=== PATIENT | female | born 1950 | race Caucasian/White ===

== ENCOUNTER 2018-09-17 00:47 | Inpatient (IN) | payer OTHER ==
[2018-09-17 00:58] VITALS: BMI 27.4
--- NOTE | 2018-09-17 02:13 | PDOC ---
History of Present Illness - General Chief Complaint: Injury Stated Complaint: FALL Time Seen by Provider: 09/17/18 01:25 History Source: Patient Exam Limitations: No Limitations - History of Present Illness Initial Comments: 09/17/18 02:12 67YOF with multiple system atrophy, REM sleep disorder who p/w unwitnessed fall from bed. Patient states she was sleeping, fell to the floor, hit her face and forehead and does not know whether or not she lost consciousness. She currently has neck pain and feels that she cannot range the neck. Feels nauseated and hot flashes, but otherwise no additional new symptoms (no CP, SOB, hematuria, diarrhea, etc). The patient cannot remember the exact moment she hit the ground. She just remembers awakening on the floor in pain. States this has never happened to her before and is not typical of her REM sleep disorder. Past History - Past Medical History Allergies/Adverse Reactions: Allergies Allergy/AdvReac Type Severity Reaction Status Date / Time No Allergy Information Allergy Verified 09/17/18 02:30 Available Home Medications: Ambulatory Orders Aspirin [ASA -] 81 mg PO DAILY 09/17/18 Calcium Carbonate [Oysco-500] 500 mg PO DAILY 09/17/18 Cholecalciferol (Vitamin D3) [Vitamin D3] 1,000 unit PO DAILY 09/17/18 Docusate Sodium 200 mg PO BID 09/17/18 Levocetirizine Dihydrochloride 2.5 mg PO HS 09/17/18 Meclizine HCl 6.25 mg PO BID PRN 09/17/18 Melatonin 3 mg PO HS 09/17/18 Multivitamin with Iron [Daily Refugio with Iron] 1 each PO DAILY 09/17/18 Polyethylene Glycol 3350 [Purelax] 17 gm PO DAILY 09/17/18 Propylene Glycol/Peg 400 [Systane 0.3-0.4% Eye Drops] 5 ml OP QID 09/17/18 Sennosides [Senna] 8.6 mg PO TIDCM 09/17/18 - Suicide/Smoking/Psychosocial Hx Smoking History: Never smoked Have you smoked in the past 12 months: No Information on smoking cessation initiated: No Hx Alcohol Use: No Drug/Substance Use Hx: No Review of Systems - Review of Systems Able to Perform ROS?: Yes Comments:: 09/17/18 02:26 GEN: hot flash, no fever, chills, malaise, generalized weakness, or weight change HEENT: no ear pain, sore throat, vision change, or eye pain CV: no chest pain, palpitations, lightheadedness, syncope, or edema RESP: no cough, wheezing, or SOB GI: nausea, no abdominal pain, vomiting, diarrhea, constipation, or white/black/ bloody stool : no dysuria, hematuria, incontinence, retention, bleeding, or discharge MSK: neck pain, muscle weakness/pain, or joint swelling/pain NEURO: no headache, seizure, vertigo, numbness, tingling, or focal weakness PSYCH: no substance use, no behavior change SKIN: no jaundice, no rash ROS otherwise negative except as noted in HPI *Physical Exam - Vital Signs Last Vital Signs Temp Pulse Resp BP Pulse Ox 98.1 F 88 18 158/87 97 09/17/18 00:56 09/17/18 00:56 09/17/18 00:56 09/17/18 00:56 09/17/18 00:56 - Physical Exam Comments: 09/17/18 02:28 GENERAL: uncomfortable appearing, A/Ox4, no distress, answers questions appropriately HEENT: PERRLA, EOMI, moist mucous membranes NECK/BACK: no midline ttp, no spinal stepoff or deformity, no hematoma, full ROM , neck supple CARDIOVASCULAR: regular rate/rhythm, normal S1S2, no MGR, strong peripheral pulses, capillary refill <2 seconds, extremities wwp, no edema LUNGS/RESPIRATORY: no respiratory distress, CTAB GI/ABDOMEN: symmetric [id number], normoactive BS, soft, no ttp, no midline pulsatile masses : no CVA tenderness EXTREMITIES: no muscle atrophy, no acute deformity SKIN: warm and dry, no pallor, no jaundice, no rash, no bruising, no skin breakdown, no cuts, no lesions NEUROLOGICAL: GCS 15, CN II-XII grossly intact, 5/5 strength proximally and distally, no facial droop Moderate Sedation - Procedure Monitoring Vital Signs: Procedure Monitoring Vital Signs Temperature 98.1 F 09/17/18 00:56 Pulse Rate 88 09/17/18 00:56 Respiratory Rate 18 09/17/18 00:56 Blood Pressure 158/87 09/17/18 00:56 O2 Sat by Pulse Oximetry (%) 97 09/17/18 00:56 ED Treatment Course - LABORATORY CBC & Chemistry Diagram: 09/17/18 05:29 09/17/18 05:29 - RADIOLOGY Radiology Studies Ordered: Category Date Time Status CERVICAL SPINE CT W/O CONTR [CT] Stat CT Scan 09/17/18 02:[address] WITHOUT CONTRAST [CT] Stat CT Scan 09/17/18 02:11 Ordered FOOT-LEFT [RAD] Stat Radiology 09/17/18 02:11 Ordered TOE(S) LEFT [RAD] Stat Radiology 09/17/18 02:11 Ordered Medical Decision Making - Medical Decision Making 67YOF with multiple system atrophy and REM sleep d/o p/w fall from bed with subsequent neck pain, right face contusion. Initial Vital Signs Temp Pulse Resp BP Pulse Ox 98.1 F 88 18 158/87 97 09/17/18 00:56 09/17/18 00:56 09/17/18 00:56 09/17/18 00:56 09/17/18 00:56 Exam: As noted in Physical Exam section. DDX IBNLT: C-spine injury, contusions, concussion, ICH, skull fracture, facial bone fracture, possible contributing factors UTI, ACS, etc. W/U ordered: Head, facial bones, and C-spine CT, labs as noted below. TX ordered: Tylenol EKG: Reviewed; results as noted in ECG Review section. Head CT: Nothing acute. Facial Bones CT: Nothing acute. C-spine CT: Nothing acute. 09/17/18 05:54 Patient refusing straight cath. She is incontinent at baseline. She prefers to have bedpan placed and she will try to urinate. Troponin is 0.13 and I have thus ordered 324 of ASA. Laboratory Tests 09/17/18 09/17/18 09/17/18 05:29 05:29 05:50 WBC 9.3 RBC 3.84 Hgb 12.3 Hct 35.0 MCV 91.1 MCH 32.1 MCHC 35.2 RDW 13.3 Plt Count 199 MPV 8.2 Absolute Neuts (auto) 6.6 Neutrophils % 70.8 Lymphocytes % 17.3 Monocytes % 9.8 Eosinophils % 1.5 Basophils % 0.6 Nucleated RBC % 0 Sodium 142 Potassium 3.6 Chloride 108 H Carbon Dioxide 28 Anion Gap 6 L BUN 26 H Creatinine 0.7 Creat Clearance w eGFR > 60 Random Glucose 92 Calcium 8.2 L Total Bilirubin 0.4 AST 32 ALT 26 Alkaline Phosphatase 68 Troponin I 0.13 H Total Protein 6.0 L Albumin 3.1 L Urine Color Ltyellow Urine Appearance Clear Urine pH 5.0 Ur Specific [place] 1.014 Urine Protein Negative Urine Glucose (UA) Negative Urine Ketones Negative Urine Blood Negative Urine Nitrite Negative Urine Bilirubin Negative Urine Urobilinogen Negative Ur Leukocyte Esterase Negative Reassessment: Patient states comfortable, exam unchanged. 09/17/18 07:19 I have discussed the case with the attending. The patient has questionable syncopal episode as she does not remember falling or hitting the ground. It is difficult to attribute this fall from bed to her REM sleep disorder as it has never manifested in falls from bed. She also has troponin above reference range and this must be further investigated. The Pt is unsafe for discharge at this time. I have spoken with Dr. Ndiaye and will place Decision to Admit order for Inpatient Tele. We will repeat troponin and EKG at 9 am. *DC/Admit/Observation/Transfer Diagnosis at time of Disposition: Neck pain, Elevated troponin Fall from bed Qualifiers: Encounter type: initial encounter Qualified Code(s): W06.XXXA - Fall from bed, initial encounter - Discharge Dispostion Condition at time of disposition: Guarded Decision to Admit order: Yes - Referrals - Patient Instructions - Post Discharge Activity
[2018-09-17] MEDS ORDERED: ACETAMINOPHEN 500 MG TABLET (FP) PO ONE (02:30)
--- NOTE | 2018-09-17 02:31 | PDOC ---
Attending Attestation - Resident Resident Name: Karla Mcgraw - ED Attending Attestation I have performed the following: I have examined & evaluated the patient, The case was reviewed & discussed with the resident, I agree w/resident's findings & plan, Exceptions are as noted - HPI HPI: 09/17/18 07:48 67F pmh of REM sleep d/o, multiple system atrophy with unwitnessed fall. She states she woke from sleep on the floor by her bead with facial px. She is unable to specify the surrounding events. But states that this is not a typical presentation of her sleep disorder. No other complaints. - Physicial Exam PE: 09/17/18 07:50 Agree with exam as documented by resident - Medical Decision Making 09/17/18 07:51 Patient here with questionable syncope, complaint is not consistent with her chronic issues Labs show new trop of 0.13 trend trops, ekg admit
[2018-09-17] MEDS ORDERED: ACETAMINOPHEN 325 MG TABLET (FP) ONE (02:51)
[2018-09-17 05:40] LABS: BASO % 0.6 % (0-2.0); EOS % 1.5 % (0-4.5); HEMOGLOBIN 12.3 GM/dL (10.7-15.3); LYMPH % 17.3 % (8-40); MCH 32.1 pg (25.7-33.7); MCHC 35.2 g/dl (32.0-36.0); MEAN CELL VOLUME 91.1 fl (80-96); MEAN PLT VOLUME 8.2 fl (7.5-11.1); MONO % 9.8 % (3.8-10.2); NEUT % 70.8 % (42.8-82.8); PLATELET COUNT 199 K/MM3 (134-434); RBC 3.84 M/mm3 (3.60-5.2); RDW 13.3 % (11.6-15.6); WHITE BLOOD COUNT 9.3 K/mm3 (4.0-10.0)
[2018-09-17] MEDS ORDERED: MAG HYDROX/AL HYDROX/SIMETH 30 ML UNIT-DOSE CUP PO ONE (06:05)
[2018-09-17 06:11] LABS: ALBUMIN 3.1 g/dl (3.4-5.0); ALK PHOS 68 U/L (45-117); ANION GAP 6 MMOL/L (8-16); BILIRUBIN,TOTAL 0.4 mg/dL (0.2-1); BLOOD UREA NITROGEN 26 mg/dL (7-18); CALCIUM 8.2 mg/dL (8.5-10.1); CHLORIDE 108 mmol/L (98-107); CO2 28 mmol/L (21-32); CREATININE 0.7 mg/dL (0.55-1.3); GLUCOSE,RANDOM 92 mg/dL (74-106); POTASSIUM 3.6 mmol/L (3.5-5.1); SGOT/AST 32 U/L (15-37); SGPT/ALT 26 U/L (13-61); SODIUM 142 mmol/L (136-145)
[2018-09-17] MEDS ORDERED: ASPIRIN 325 MG ENTERIC COATED TABLET (FP) PO ONE (06:23)
[2018-09-17 06:31] LABS: URINE APPEARANCE CLEAR; URINE BILIRUBIN NEGATIVE (<2.0 mg/dL); URINE COLOR LTYELLOW; URINE GLUCOSE (UA) NEGATIVE (NEGATIVE); URINE KETONE NEGATIVE (NEGATIVE); URINE LEUK ESTERASE NEGATIVE (NEGATIVE); URINE NITRITE NEGATIVE (NEGATIVE); URINE PROTEIN NEGATIVE (NEGATIVE); URINE UROBILINOGEN NEGATIVE mg/dL (0.2-1.0)
[2018-09-17] MEDS ORDERED: MECLIZINE HCL 12.5 MG TABLET PO PRN (07:33)
[2018-09-17] MEDS ORDERED: ASPIRIN 81 MG CHEWABLE TABLETS ONE (10:25)
[2018-09-17] MEDS ORDERED: DOCUSATE SODIUM 100 MG CAPSULE (FP) PO ONE (10:25)
[2018-09-17] MEDS: DOCUSATE SODIUM 100 MG CAPSULE (FP) PO SCH ×2 (10:26→21:16)
[2018-09-17] MEDS: ASPIRIN 81 MG CHEWABLE TABLETS PO SCH (10:26)
[2018-09-17] MEDS: CHOLECALCIFEROL (VITAMIN D3) 1,000 UNIT TABLET (FP) PO SCH (11:17)
[2018-09-17] MEDS: CALCIUM (OYSTER SHELL) 500 MG TABLET (FP) PO SCH (11:17)
--- NOTE | 2018-09-17 11:36 | CON.CARD ---
Cardiology Consult (text) - Consultation Consultation Note: cc: fall hpi: 67 f hx parkinsons here s/p fall. Pt fell out of bed while she was sleeping last night. Had been feeling well lately. No cp sob palps dizzy loc pnd orthopnea le edema. No hx hrt dz. Feels well now, asking to go home. pmh: per hpi psh: nc social: no tob fam: no premature cad or scd ros: per hpi; no nvd fever gib hematuria dysuria vision changes muscle pain meds: Home Medications Medication Instructions Recorded Aspirin [ASA -] 81 mg PO DAILY 09/17/18 Calcium Carbonate [Oysco-500] 500 mg PO DAILY 09/17/18 Cholecalciferol (Vitamin D3) 1,000 unit PO DAILY 09/17/18 [Vitamin D3] Docusate Sodium 200 mg PO BID 09/17/18 Levocetirizine Dihydrochloride 2.5 mg PO HS 09/17/18 Meclizine HCl 6.25 mg PO BID PRN 09/17/18 Melatonin 3 mg PO HS 09/17/18 Multivitamin with Iron [Daily Refugio 1 each PO DAILY 09/17/18 with Iron] Polyethylene Glycol 3350 [Purelax] 17 gm PO DAILY 09/17/18 Propylene Glycol/Peg 400 [Systane 5 ml OP QID 09/17/18 0.3-0.4% Eye Drops] Sennosides [Senna] 8.6 mg PO TIDCM 09/17/18 pe: Vital Signs Period Temp Pulse Resp BP Sys/Nicholas Pulse Ox Last 24 Hr 98.1 F-98.5 F 70-88 16-19 119-158/59-87 97-99 nad no jvd rrr s1s2 no mrg cta bl nl eff aaox3 no le e/c/c abd nt nd pos bs no jaundice diaphoresis pos dp pt no carotid bruits Laboratory Last Values WBC 9.3 K/mm3 (4.0-10.0) 09/17/18 05:29 RBC 3.84 M/mm3 (3.60-5.2) 09/17/18 05:29 Hgb 12.3 GM/dL (10.7-15.3) 09/17/18 05:29 Hct 35.0 % (32.4-45.2) 09/17/18 05:29 MCV 91.1 fl (80-96) 09/17/18 05:29 MCH 32.1 pg (25.7-33.7) 09/17/18 05:29 MCHC 35.2 g/dl (32.0-36.0) 09/17/18 05:29 RDW 13.3 % (11.6-15.6) 09/17/18 05:29 Plt Count 199 K/MM3 (134-434) 09/17/18 05:29 MPV 8.2 fl (7.5-11.1) 09/17/18 05:29 Absolute Neuts (auto) 6.6 K/mm3 (1.5-8.0) 09/17/18 05:29 Neutrophils % 70.8 % (42.8-82.8) 09/17/18 05:29 Lymphocytes % 17.3 % (8-40) 09/17/18 05:29 Monocytes % 9.8 % (3.8-10.2) 09/17/18 05:29 Eosinophils % 1.5 % (0-4.5) 09/17/18 05:29 Basophils % 0.6 % (0-2.0) 09/17/18 05:29 Nucleated RBC % 0 % (0-0) 09/17/18 05:29 Sodium 142 mmol/L (136-145) 09/17/18 05:29 Potassium 3.6 mmol/L (3.5-5.1) 09/17/18 05:29 Chloride 108 mmol/L (98-107) H 09/17/18 05:29 Carbon Dioxide 28 mmol/L (21-32) 09/17/18 05:29 Anion Gap 6 MMOL/L (8-16) L 09/17/18 05:29 BUN 26 mg/dL (7-18) H 09/17/18 05:29 Creatinine 0.7 mg/dL (0.55-1.3) 09/17/18 05:29 Creat Clearance w eGFR > 60 (>60) 09/17/18 05:29 Random Glucose 92 mg/dL (74-106) 09/17/18 05:29 Calcium 8.2 mg/dL (8.5-10.1) L 09/17/18 05:29 Total Bilirubin 0.4 mg/dL (0.2-1) 09/17/18 05:29 AST 32 U/L (15-37) 09/17/18 05:29 ALT 26 U/L (13-61) 09/17/18 05:29 Alkaline Phosphatase 68 U/L (45-117) 09/17/18 05:29 Troponin I 0.11 ng/ml (0.00-0.05) H 09/17/18 07:56 Total Protein 6.0 g/dl (6.4-8.2) L 09/17/18 05:29 Albumin 3.1 g/dl (3.4-5.0) L 09/17/18 05:29 Urine Color Ltyellow 09/17/18 05:50 Urine Appearance Clear 09/17/18 05:50 Urine pH 5.0 (5.0-8.0) 09/17/18 05:50 Ur Specific [place] 1.014 (1.010-1.035) 09/17/18 05:50 Urine Protein Negative (NEGATIVE) 09/17/18 05:50 Urine Glucose (UA) Negative (NEGATIVE) 09/17/18 05:50 Urine Ketones Negative (NEGATIVE) 09/17/18 05:50 Urine Blood Negative (NEGATIVE) 09/17/18 05:50 Urine Nitrite Negative (NEGATIVE) 09/17/18 05:50 Urine Bilirubin Negative (<2.0 mg/dL) 09/17/18 05:50 Urine Urobilinogen Negative mg/dL (0.2-1.0) 09/17/18 05:50 Ur Leukocyte Esterase Negative (NEGATIVE) 09/17/18 05:50 ecg: sr, nl qtc, IRBBB a/p: 67 f hx parkinsons here s/p fall. fall: -pt fell out of bed while sleeping, no indication of cardiac involvement elevated troponin: -borderline trop level with flat trend. no clinical suspicion for acute cardiac issues. no signs of acs. No further cardiac testing needed at this time. cardiac robledo stable for dc.
--- NOTE | 2018-09-17 11:51 | EKG ---
Test Reason : Blood Pressure : / mmHG Vent. Rate : 067 BPM Atrial Rate : 067 BPM P-R Int : 186 ms QRS Dur : 134 ms QT Int : 446 ms P-R-T Axes : 063 046 032 degrees QTc Int : 471 ms NORMAL SINUS RHYTHM RIGHT BUNDLE BRANCH BLOCK ABNORMAL ECG WHEN COMPARED WITH ECG OF 17-SEP-2018 05:40, NO SIGNIFICANT CHANGE WAS FOUND Confirmed by NASREEN ALVAREZ, PERLA ([id number]) on 09/17/2018 11:51:18 AM Referred By: Confirmed By:PERLA DOWNEY MD
--- NOTE | 2018-09-17 11:51 | EKG ---
Test Reason : Blood Pressure : / mmHG Vent. Rate : 059 BPM Atrial Rate : 059 BPM P-R Int : 172 ms QRS Dur : 132 ms QT Int : 466 ms P-R-T Axes : 064 010 036 degrees QTc Int : 461 ms SINUS BRADYCARDIA RIGHT BUNDLE BRANCH BLOCK ABNORMAL ECG NO PREVIOUS ECGS AVAILABLE Confirmed by NASREEN ALVAREZ, PERLA ([id number]) on 09/17/2018 11:51:25 AM Referred By: Confirmed By:PERLA DOWNEY MD
--- NOTE | 2018-09-17 12:09 | HP ---
Admitting History and Physical - Admission History of Present Illness: hpi: 67 f hx parkinsons here s/p fall. Pt fell out of bed while she was sleeping last night. Had been feeling well lately. No cp sob palps dizzy loc pnd orthopnea le edema. No hx hrt dz. She was found tohave elevated troponin in ER and cardiology consult was requested, patient cleared for discharge to return to [address] [place] [address] Limitations to Obtaining History: Poor Historian - Past Medical History [employer]: Yes: Parkinson's - Smoking History Smoking history: Never smoked Have you smoked in the past 12 months: No - Alcohol/Substance Use Hx Alcohol Use: No - Social History Usual Living Arrangement: Yes: Assisted Living ADL: Support Services History of Recent Travel: No Home Medications - Allergies Allergies/Adverse Reactions: Allergies Allergy/AdvReac Type Severity Reaction Status Date / Time loratadine [From Claritin] Allergy Verified 09/18/18 04:57 - Home Medications Home Medications: Ambulatory Orders Aspirin [ASA -] 81 mg PO DAILY 09/17/18 Calcium Carbonate [Oysco-500] 500 mg PO DAILY 09/17/18 Cholecalciferol (Vitamin D3) [Vitamin D3] 1,000 unit PO DAILY 09/17/18 Docusate Sodium 200 mg PO BID 09/17/18 Levocetirizine Dihydrochloride 2.5 mg PO HS 09/17/18 Meclizine HCl 6.25 mg PO BID PRN 09/17/18 Melatonin 3 mg PO HS 09/17/18 Multivitamin with Iron [Daily Refugio with Iron] 1 each PO DAILY 09/17/18 Polyethylene Glycol 3350 [Purelax] 17 gm PO DAILY 09/17/18 Propylene Glycol/Peg 400 [Systane 0.3-0.4% Eye Drops] 5 ml OP QID 09/17/18 Sennosides [Senna] 8.6 mg PO TIDCM 09/17/18 Review of Systems - Review of Systems Constitutional: reports: No Symptoms Eyes: reports: No Symptoms HENT: reports: No Symptoms Neck: reports: No Symptoms Cardiovascular: reports: No Symptoms Respiratory: reports: No Symptoms Gastrointestinal: reports: No Symptoms Genitourinary: reports: No Symptoms Breasts: reports: No Symptoms Reported Musculoskeletal: reports: Joint Pain, Muscle Weakness Integumentary: reports: No Symptoms Neurological: reports: Pre-Existing Deficit, Tremors, Unsteady Gait Endocrine: reports: No Symptoms Hematology/Lymphatic: reports: No Symptoms Psychiatric: reports: Depression Physical Examination Vital Signs: Vital Signs Temperature 98.4 F 09/17/18 07:35 Pulse Rate 70 09/17/18 11:18 Respiratory Rate 18 09/17/18 11:18 Blood Pressure 136/65 09/17/18 11:18 O2 Sat by Pulse Oximetry (%) 98 09/17/18 11:18 Constitutional: Yes: Well Nourished, No Distress, Calm Eyes: Yes: Conjunctiva Clear, EOM Intact HENT: Yes: Normocephalic Neck: Yes: Supple, Trachea Midline Cardiovascular: Yes: Regular Rate and Rhythm Respiratory: Yes: CTA Bilaterally Gastrointestinal: Yes: Normal Bowel Sounds, Soft ...Rectal Exam: Yes: Deferred Renal/: Yes: WNL Breast(s): Yes: WNL Musculoskeletal: Yes: Joint Stiffness, Muscle Weakness Extremities: No: Deformity Edema: No Peripheral Pulses WNL: Yes Integumentary: Yes: Bruising (facial) Wound/Incision: Yes: Clean/Dry Neurological: Yes: Alert, Oriented Psychiatric: Yes: Alert, Oriented Labs: CBC, BMP 09/17/18 05:29 09/17/18 05:29 Problem List - Problems (1) Fall from bed Code(s): W06.XXXA - FALL FROM BED, INITIAL ENCOUNTER Qualifiers: Encounter type: initial encounter Qualified Code(s): W06.XXXA - Fall from bed, initial encounter (2) Neck pain Code(s): M54.2 - CERVICALGIA (3) Elevated troponin Assessment/Plan: no chest pain / shortness of breath . diaphoresis do Sx of ACS or cardiac event TNI X3 trending down no EKG changes Cardio request for discharge Code(s): R74.8 - ABNORMAL LEVELS OF OTHER SERUM ENZYMES
--- NOTE | 2018-09-17 12:23 | DS ---
Physical Examination Vital Signs: Vital Signs Temperature 98.4 F 09/17/18 07:35 Pulse Rate 70 09/17/18 11:18 Respiratory Rate 18 09/17/18 11:18 Blood Pressure 136/65 09/17/18 11:18 O2 Sat by Pulse Oximetry (%) 98 09/17/18 11:18 Findings/Remarks: hpi: 67 f hx parkinsons here s/p fall. Pt fell out of bed while she was sleeping last night. Had been feeling well lately. No cp sob palps dizzy loc pnd orthopnea le edema. No hx hrt dz. She was found tohave elevated troponin in ER and cardiology consult was requested, patient cleared for discharge to return to [address] [place] [address]. no Sx of ACS / or cardiac event appreciate cardiology evaluation Limitations to Obtaining History: Poor Historian Constitutional: Yes: Well Nourished, No Distress Eyes: Yes: Conjunctiva Clear, EOM Intact HENT: Yes: Normocephalic Neck: Yes: Supple, Trachea Midline Cardiovascular: Yes: Regular Rate and Rhythm Respiratory: Yes: CTA Bilaterally Gastrointestinal: Yes: Normal Bowel Sounds, Soft ...Rectal Exam: Yes: WNL Renal/: Yes: WNL Breast(s): Yes: WNL Musculoskeletal: Yes: Joint Stiffness, Muscle Weakness Extremities: Yes: WNL, Deformity Edema: No Peripheral Pulses WNL: Yes Integumentary: Yes: Bruising Wound/Incision: Yes: Clean/Dry Neurological: Yes: Alert, Oriented Psychiatric: Yes: Alert, Oriented Labs: CBC, BMP 09/17/18 05:29 09/17/18 05:29 Discharge Summary Reason For Visit: FALL FROM BED,ELEVATED TROPONIN LEVEL,NECK PAIN Current Active Problems Elevated troponin (Acute) Fall from bed (Acute) Neck pain (Acute) Condition: Fair - Instructions Disposition: VNS/HOME HEALTH CARE - Home Medications Comprehensive Discharge Medication List: Ambulatory Orders Aspirin [ASA -] 81 mg PO DAILY 09/17/18 Calcium Carbonate [Oysco-500] 500 mg PO DAILY 09/17/18 Cholecalciferol (Vitamin D3) [Vitamin D3] 1,000 unit PO DAILY 09/17/18 Docusate Sodium 200 mg PO BID 09/17/18 Levocetirizine Dihydrochloride 2.5 mg PO HS 09/17/18 Meclizine HCl 6.25 mg PO BID PRN 09/17/18 Melatonin 3 mg PO HS 09/17/18 Multivitamin with Iron [Daily Refugio with Iron] 1 each PO DAILY 09/17/18 Polyethylene Glycol 3350 [Purelax] 17 gm PO DAILY 09/17/18 Propylene Glycol/Peg 400 [Systane 0.3-0.4% Eye Drops] 5 ml OP QID 09/17/18 Sennosides [Senna] 8.6 mg PO TIDCM 09/17/18
--- NOTE | 2018-09-17 15:41 | ECHO ---
Version: 1 Name: FREDDY MOREL Exam: Adult Echocardiogram Study Date: 09/17/2018, 2:54 PM Age: 67 Years MMode/2D Measurements & Calculations IVSd: 0.81 cm LVIDs: 2.6 cm LVIDd: 3.8 cm LVPWd: 0.93 cm LVOT diam: 2.09 cm Ao root diam: 2.8 cm LA dimension: 3.2 cm Doppler Measurements & Calculations MV E max devon: 50.8 cm/sec Med E/e': 7.6 MV A max devon: 60.7 cm/sec Med Peak E' Devon: 6.7 cm/sec MV E/A: 0.84 Lat E/e': 5.3 Lat Peak E' Devon: 9.7 cm/sec Ao max P.9 mmHg Ao V2 max: 165.1 cm/sec Left Ventricle The left ventricular ejection fraction is normal. Ejection Fraction = 55-60%. Right Ventricle The right ventricle is grossly normal size. The right ventricular systolic function is grossly tommie l. Atria Normal left and right atrial size and function. Mitral Valve The mitral valve is normal in structure and function. There is no mitral valve stenosis. There is mi ld mitral regurgitation. Tricuspid Valve The tricuspid valve is normal in structure and function. There is mild tricuspid regurgitation. Aortic Valve The aortic valve opens well. No hemodynamically significant valvular aortic stenosis. No aortic regu rgitation is present. Pulmonic Valve The pulmonic valve is not well seen, but is grossly normal. There is no pulmonic valvular stenosis. Great Vessels The aortic root is normal size. Pericardium/Pleura There is no pericardial effusion. Summary Statements The left ventricular ejection fraction is normal. Ejection Fraction = 55-60%. There is mild mitral regurgitation. There is mild tricuspid regurgitation. There is no pericardial effusion. MD Gross *Masoud 09/17/2018, 3:40 PM Ordering Physician: GAUDENCIO MENDOZA Performed By: Paloma Treviño
[2018-09-17] MEDS ORDERED: ACETAMINOPHEN 325 MG TABLET (FP) PO PRN (22:24)
[2018-09-17] MEDS ORDERED: MELATONIN 1 MG TABLET PO SCH (22:30)
[2018-09-18 07:11] LABS: BASO % 0.5 % (0-2.0); EOS % 3.1 % (0-4.5); HEMATOCRIT 34.9 % (32.4-45.2); HEMOGLOBIN 12.3 GM/dL (10.7-15.3); LYMPH % 24.7 % (8-40); MCHC 35.3 g/dl (32.0-36.0); MEAN CELL VOLUME 90.6 fl (80-96); MEAN PLT VOLUME 8.4 fl (7.5-11.1); MONO % 9.3 % (3.8-10.2); NEUT % 62.4 % (42.8-82.8); PLATELET COUNT 193 K/MM3 (134-434); RBC 3.85 M/mm3 (3.60-5.2); RDW 13.1 % (11.6-15.6); WHITE BLOOD COUNT 5.7 K/mm3 (4.0-10.0)
[2018-09-18 07:53] LABS: ANION GAP 5 MMOL/L (8-16); BLOOD UREA NITROGEN 13 mg/dL (7-18); CALCIUM 8.3 mg/dL (8.5-10.1); CHLORIDE 106 mmol/L (98-107); CO2 29 mmol/L (21-32); CREATININE 0.5 mg/dL (0.55-1.3); GLUCOSE,RANDOM 92 mg/dL (74-106); MAGNESIUM 2.2 mg/dL (1.8-2.4); POTASSIUM 3.6 mmol/L (3.5-5.1); SODIUM 140 mmol/L (136-145)
--- NOTE | 2018-09-18 08:52 | PN ---
Progress Note, Physician Chief Complaint: fall History of Present Illness: denies cp, palpitations, PND, leg swelling - Current Medication List Current Medications: Active Medications Acetaminophen (Tylenol -) 650 mg PO Q6H PRN PRN Reason: FEVER Last Admin: 09/17/18 23:08 Dose: 650 mg Aspirin (Asa -) 81 mg PO DAILY [facility] Last Admin: 09/17/18 10:26 Dose: 81 mg Calcium Carbonate (Os-Daniel 500mg -) 500 mg PO DAILY [facility] Last Admin: 09/17/18 11:17 Dose: 500 mg Cholecalciferol (Vitamin D3 -) 1,000 unit PO DAILY [facility] Last Admin: 09/17/18 11:17 Dose: 1,000 unit Docusate Sodium (Colace -) 200 mg PO BID [facility] Last Admin: 09/17/18 21:16 Dose: 200 mg Loratadine (Claritin -) 10 mg PO DAILY [facility] Meclizine HCl (Antivert -) 6.25 mg PO Q12H PRN PRN Reason: VERTIGO Melatonin (Melatonin) 3 mg PO HS [facility] Last Admin: 09/17/18 23:45 Dose: 3 mg - Objective Vital Signs: Vital Signs Temperature 98 F 09/18/18 06:00 Pulse Rate 71 09/18/18 06:00 Respiratory Rate 16 09/18/18 06:00 Blood Pressure 146/73 09/18/18 06:00 O2 Sat by Pulse Oximetry (%) 98 09/17/18 21:00 Constitutional: Yes: Well Nourished, No Distress, Calm Cardiovascular: Yes: Regular Rate and Rhythm, S1, S2. No: Gallop, Murmur Respiratory: Yes: Regular, CTA Bilaterally. No: Accessory Muscle Use, Rales, Wheezes Extremities: No: Cold Edema: No Neurological: Yes: Alert, Oriented, Tremors (fine tremor, rapid, R arm) Psychiatric: No: Agitated Labs: CBC, BMP 09/18/18 06:30 09/18/18 06:30 Assessment/Plan Echo 09/11: nl LVEF (55-60%). nl RV. nl LA. mild MR/TR tele: NSR, artifact a/p: 67 f hx parkinsons here s/p fall. fall: -pt fell out of bed while sleeping, no indication of cardiac involvement elevated troponin: -indeterminate trop level (0.1) with flat trend = non-diagnostic in absence of clinical picture c/w acute ischemia -no ischemic ecg changes -normal LV fxn on echo -no further CV workup indicated abnormal ecg: -tele frequently with alarms for tachycardia/SVT -strips reviewed--clearly artifactual (sec to pt tremor) with underyling R-R intervals apparent intermittently that are c/w NSR rate -no further w/u necessary OK FOR DC FROM CV P.O.V.
[2018-09-18] MEDS ORDERED: PT OWN MED DRAWER 7, Y5N ONE (09:35)
[2018-09-18] MEDS: DOCUSATE SODIUM 100 MG CAPSULE (FP) PO SCH (09:55)
[2018-09-18] MEDS: CHOLECALCIFEROL (VITAMIN D3) 1,000 UNIT TABLET (FP) PO SCH (09:55)
[2018-09-18] MEDS: CALCIUM (OYSTER SHELL) 500 MG TABLET (FP) PO SCH (09:55)
[2018-09-18] MEDS: ASPIRIN 81 MG CHEWABLE TABLETS PO SCH (09:55)
[2018-09-18] MEDS ORDERED: LORATADINE 10 MG TABLET PO SCH (10:00)
--- NOTE | 2018-09-18 12:47 | EKG ---
Test Reason : Blood Pressure : / mmHG Vent. Rate : 080 BPM Atrial Rate : 080 BPM P-R Int : 190 ms QRS Dur : 128 ms QT Int : 422 ms P-R-T Axes : 057 041 014 degrees QTc Int : 486 ms NORMAL SINUS RHYTHM RIGHT BUNDLE BRANCH BLOCK ABNORMAL ECG Confirmed by DAVID OLIVARES MD ([id number]) on 09/18/2018 12:47:10 PM Referred By: Coby HUANG Confirmed By:DAVID OLIVARES MD
--- NOTE | 2018-09-18 14:41 | PN ---
Progress Note (short form) - Note Progress Note: Patient seen and examined in her room telemetry reviewed no arrhythmias seen appreciate Cardio input and agree with A/P Vital Signs Period Temp Pulse Resp BP Sys/Nicholas Pulse Ox Last 24 Hr 97.8 F-98.4 F 71-95 16-69 112-159/57-84 98-99 neck -JVD heart reg S1/S2 lungs clear bilat abd soft non tender ext no edema CBC, BMP 09/18/18 06:30 09/18/18 06:30 Echo 09/11: nl LVEF (55-60%). nl RV. nl LA. mild MR/TR tele: NSR, artifact Microbiology 09/17/18 05:50 Urine - Urine Clean Catch Urine Culture - Final NO GROWTH OBTAINED Active Medications Acetaminophen (Tylenol -) 650 mg PO Q6H PRN PRN Reason: FEVER Last Admin: 09/17/18 23:08 Dose: 650 mg Aspirin (Asa -) 81 mg PO DAILY COUNTS INCLUDE 234 BEDS AT THE [facility] Last Admin: 09/18/18 09:55 Dose: 81 mg Calcium Carbonate (Os-Daniel 500mg -) 500 mg PO DAILY COUNTS INCLUDE 234 BEDS AT THE [facility] Last Admin: 09/18/18 09:55 Dose: 500 mg Cholecalciferol (Vitamin D3 -) 1,000 unit PO DAILY COUNTS INCLUDE 234 BEDS AT THE [facility] Last Admin: 09/18/18 09:55 Dose: 1,000 unit Docusate Sodium (Colace -) 200 mg PO BID COUNTS INCLUDE 234 BEDS AT THE [facility] Last Admin: 09/18/18 09:55 Dose: 200 mg Loratadine (Claritin -) 10 mg PO DAILY COUNTS INCLUDE 234 BEDS AT THE [facility] Last Admin: 09/18/18 09:51 Dose: Not Given Meclizine HCl (Antivert -) 6.25 mg PO Q12H PRN PRN Reason: VERTIGO Melatonin (Melatonin) 3 mg PO HS COUNTS INCLUDE 234 BEDS AT THE [facility] Last Admin: 09/17/18 23:45 Dose: 3 mg 67 f hx parkinsons here s/p fall. Discussed with staff at assisted living -- no associated events. Patient denies CP / SOB / diaphoresis or other cardiac symptoms prior to event or following event . She was transferred to ER for further evaluation. Appreciate Cardiology consult and follow up. She will be discharged today to return to [facility] -- no change in medical management. Problem List - Problems (1) Fall from bed Code(s): W06.XXXA - FALL FROM BED, INITIAL ENCOUNTER Qualifiers: Encounter type: initial encounter Qualified Code(s): W06.XXXA - Fall from bed, initial encounter (2) Parkinson disease Code(s): G20 - PARKINSON'S DISEASE (3) Neck pain Code(s): M54.2 - CERVICALGIA (4) Elevated troponin Assessment/Plan: no chest pain / shortness of breath . diaphoresis do Sx of ACS or cardiac event TNI X3 trending down no EKG changes Cardio cleared for discharge Code(s): R74.8 - ABNORMAL LEVELS OF OTHER SERUM ENZYMES
[2018-09-18 15:12] VITALS: BP 119/65; PULSE 86; TEMP 98.2
== END 2018-09-18 16:47 | disposition home health service (06) | DRG 948 ==
LOC: JER 00:47 → JERBED 06:35 → J4S 19:53
PROVIDERS: ADMIT Family Medicine; ATTEND Family Medicine
DX: R74.8 Abnormal levels of other serum enzymes (principal); M54.2 Cervicalgia; R00.0 Tachycardia, unspecified; G20 Parkinson's disease
CPT/HCPCS: 36415; 70450-TC; 70486-TC; 72125-TC; 73630-TC-LT; 73660-TC-LT-FY; 80048; 80053; 81003; 82550; 82553; 83735; 84484; 85025; 87086; 93005; 93010; 93306-TC; 99285-25

== ENCOUNTER 2020-10-28 11:47 | Observation (INO) | payer OTHER ==
[2020-10-28] MEDS ORDERED: NOREPINEPHRINE BITARTRATE 4 MG/4 ML ML IV ONE (12:09)
[2020-10-28] MEDS: SODIUM CHLORIDE 1,000 ML IV SCH (12:31)
[2020-10-28 12:45] LABS: BASO % 0.3 % (0-2.0); HEMATOCRIT 38.8 % (32.4-45.2); HEMOGLOBIN 13.3 GM/dL (10.7-15.3); LYMPH % 4.8 % (8-40); MCH 30.9 pg (25.7-33.7); MCHC 34.1 g/dl (32.0-36.0); MEAN CELL VOLUME 90.7 fl (80-96); MEAN PLT VOLUME 8.5 fl (7.5-11.1); MONO % 7.1 % (3.8-10.2); NEUT % 87.8 % (42.8-82.8); PLATELET COUNT 218 K/MM3 (134-434); RBC 4.28 M/mm3 (3.60-5.2); RDW 13.4 % (11.6-15.6); WHITE BLOOD COUNT 8.9 K/mm3 (4.0-10.0)
[2020-10-28 12:50] LABS: INR 0.97 (0.83-1.09); PROTHROMBIN TIME (PATIENT) 11.9 SEC (9.7-13.0)
[2020-10-28 12:53] LABS: ACTIVATED PTT 27.5 SECONDS (25.2-36.5)
[2020-10-28 13:04] LABS: CHOLESTEROL 246 mg/dL (50-200)
[2020-10-28 13:05] LABS: LDL CHOLESTEROL (ONLY SJRH) 147 mg/dL (5-100); TRIGLYCERIDES 137 mg/dL (0-150)
[2020-10-28 13:06] LABS: HDL CHOLESTEROL 68 mg/dL (40-60)
[2020-10-28 13:10] LABS: ALBUMIN 3.3 g/dl (3.4-5.0); ALK PHOS 82 U/L (45-117); ANION GAP 7 MMOL/L (8-16); BILIRUBIN,TOTAL 0.6 mg/dL (0.2-1); BLOOD UREA NITROGEN 18.8 mg/dL (7-18); CALCIUM 8.9 mg/dL (8.5-10.1); CHLORIDE 104 mmol/L (98-107); CO2 26 mmol/L (21-32); CREATININE 0.9 mg/dL (0.55-1.3); GLUCOSE,RANDOM 125 mg/dL (74-106); POTASSIUM 3.8 mmol/L (3.5-5.1); SGOT/AST 18 U/L (15-37); SGPT/ALT 8 U/L (13-61); SODIUM 138 mmol/L (136-145); TOT PROT 6.8 g/dl (6.4-8.2)
[2020-10-28 13:38] LABS: EPI CELLS 26 /uL (0-25.1); HYALINE CASTS 5 /uL (0-3.1); URINE APPEARANCE CLEAR; URINE BACTERIA 616 /uL (0-1359); URINE BILIRUBIN NEGATIVE (NEGATIVE); URINE COLOR YELLOW; URINE GLUCOSE (UA) NEGATIVE (NEGATIVE); URINE KETONE TRACE (NEGATIVE); URINE LEUK ESTERASE NEGATIVE (NEGATIVE); URINE NITRITE NEGATIVE (NEGATIVE); URINE PROTEIN 1+ (NEGATIVE); URINE RBC 10 /uL (0-23.9); URINE WBC 26 /uL (0-25.8)
[2020-10-28] MEDS ORDERED: DOCUSATE SODIUM 100 MG CAPSULE (FP) PO PRN (15:12)
[2020-10-28] MEDS ORDERED: PANTOPRAZOLE 20 MG TABLET PO ONE ×2 (16:36→17:07)
[2020-10-28] MEDS: PANTOPRAZOLE 40 MG TABLET PO SCH (17:00)
[2020-10-28] MEDS: POTASSIUM CHLORIDE 10 MEQ in DEXTROSE 5%-NORMAL SALINE 1,000 ML IVPB SCH (17:20)
[2020-10-28] MEDS: MELATONIN 1 MG TABLET PO SCH (22:44)
[2020-10-28] MEDS: POLYETHYLENE GLYCOL 3350 119 GM BTL PO SCH (22:45)
[2020-10-28] MEDS: CARBIDOPA/LEVODOPA 10/100 TABLET (FP) PO SCH (22:47)
[2020-10-28] MEDS: rOPINIRole HCL 0.5 MG TABLET PO SCH (22:47)
[2020-10-28] MEDS: DOCUSATE SODIUM 100 MG CAPSULE (FP) PO SCH (22:48)
[2020-10-28] MEDS: ATORVASTATIN CA 10 MG TABLET (FP) PO SCH (22:48)
[2020-10-29] MEDS: rOPINIRole HCL 0.5 MG TABLET PO SCH ×3 (06:16→21:13)
[2020-10-29] MEDS: DOCUSATE SODIUM 100 MG CAPSULE (FP) PO SCH ×2 (09:35→21:12)
[2020-10-29] MEDS: CHOLECALCIFEROL (VIT D3) 1,000 UNIT (25 MCG) TABLET PO SCH (09:36)
[2020-10-29] MEDS: POLYETHYLENE GLYCOL 3350 119 GM BTL PO SCH ×2 (09:36→10:30)
[2020-10-29] MEDS: PANTOPRAZOLE 40 MG TABLET PO SCH (09:36)
[2020-10-29] MEDS: CARBIDOPA/LEVODOPA 10/100 TABLET (FP) PO SCH (09:36)
[2020-10-29] MEDS: ASPIRIN COATED 81 MG TABLET.EC PO SCH (09:36)
[2020-10-29 12:28] LABS: BASO % 0.6 % (0-2.0); EOS % 1.7 % (0-4.5); HEMATOCRIT 34.8 % (32.4-45.2); HEMOGLOBIN 11.9 GM/dL (10.7-15.3); LYMPH % 18.9 % (8-40); MCH 30.9 pg (25.7-33.7); MCHC 34.2 g/dl (32.0-36.0); MEAN CELL VOLUME 90.5 fl (80-96); MEAN PLT VOLUME 7.9 fl (7.5-11.1); MONO % 12.5 % (3.8-10.2); NEUT % 66.3 % (42.8-82.8); PLATELET COUNT 194 K/MM3 (134-434); RBC 3.84 M/mm3 (3.60-5.2); RDW 13.5 % (11.6-15.6); WHITE BLOOD COUNT 4.5 K/mm3 (4.0-10.0)
[2020-10-29 12:44] LABS: POTASSIUM 3.5 mmol/L (3.5-5.1)
[2020-10-29 12:45] LABS: CALCIUM 8.1 mg/dL (8.5-10.1)
[2020-10-29 12:46] LABS: ALBUMIN 2.8 g/dl (3.4-5.0)
[2020-10-29 12:49] LABS: CREATININE 0.6 mg/dL (0.55-1.3)
[2020-10-29 12:50] LABS: BILIRUBIN,TOTAL 0.6 mg/dL (0.2-1)
[2020-10-29 12:51] LABS: TOT PROT 5.9 g/dl (6.4-8.2)
[2020-10-29 12:52] LABS: BLOOD UREA NITROGEN 12.3 mg/dL (7-18)
[2020-10-29] MEDS: SODIUM CHLORIDE 1,000 ML IV SCH (16:31)
[2020-10-29] MEDS: POTASSIUM CHLORIDE 10 MEQ in DEXTROSE 5%-NORMAL SALINE 1,000 ML IVPB SCH (17:14)
[2020-10-29] MEDS: FLUDROCORTISONE ACETATE 0.1 MG TABLET (FP) PO SCH (17:14)
[2020-10-29] MEDS: MELATONIN 1 MG TABLET PO SCH (21:12)
[2020-10-29] MEDS: ATORVASTATIN CA 10 MG TABLET (FP) PO SCH (21:13)
[2020-10-30] MEDS ORDERED: diphenhydrAMINE HCL 25 MG CAPSULE (FP) PO ONE (05:38)
[2020-10-30] MEDS: rOPINIRole HCL 0.25 MG TABLET PO SCH ×4 (06:22→20:49)
[2020-10-30] MEDS ORDERED: CALCIUM CARBONATE 650 MG TABLET PO ONE (06:30)
[2020-10-30] MEDS: CHOLECALCIFEROL (VIT D3) 1,000 UNIT (25 MCG) TABLET PO SCH (10:28)
[2020-10-30] MEDS: PANTOPRAZOLE 40 MG TABLET PO SCH (10:28)
[2020-10-30] MEDS: ASPIRIN COATED 81 MG TABLET.EC PO SCH (10:28)
[2020-10-30] MEDS: DOCUSATE SODIUM 100 MG CAPSULE (FP) PO SCH ×2 (10:28→22:14)
[2020-10-30] MEDS: POLYETHYLENE GLYCOL 3350 119 GM BTL PO SCH (10:29)
[2020-10-30] MEDS: FLUDROCORTISONE ACETATE 0.1 MG TABLET (FP) PO SCH (12:19)
[2020-10-30] MEDS: ATORVASTATIN CA 10 MG TABLET (FP) PO SCH (22:14)
[2020-10-30] MEDS: MELATONIN 1 MG TABLET PO SCH (22:16)
[2020-10-30] MEDS: rOPINIRole HCL 0.5 MG TABLET PO SCH (22:22)
[2020-10-31] MEDS: rOPINIRole HCL 0.25 MG TABLET PO SCH ×3 (06:07→21:58)
[2020-10-31] MEDS: DOCUSATE SODIUM 100 MG CAPSULE (FP) PO SCH ×2 (10:23→21:58)
[2020-10-31] MEDS: ASPIRIN COATED 81 MG TABLET.EC PO SCH (10:23)
[2020-10-31] MEDS: CHOLECALCIFEROL (VIT D3) 1,000 UNIT (25 MCG) TABLET PO SCH (10:24)
[2020-10-31] MEDS: PANTOPRAZOLE 40 MG TABLET PO SCH (10:24)
[2020-10-31] MEDS: POLYETHYLENE GLYCOL 3350 119 GM BTL PO SCH (10:24)
[2020-10-31] MEDS: FLUDROCORTISONE ACETATE 0.1 MG TABLET (FP) PO SCH (10:24)
[2020-10-31] MEDS: POTASSIUM CHLORIDE 10 MEQ in DEXTROSE 5%-NORMAL SALINE 1,000 ML IVPB SCH (14:12)
[2020-10-31] MEDS: SODIUM CHLORIDE 1,000 ML IV SCH (14:12)
[2020-10-31] MEDS: ATORVASTATIN CA 10 MG TABLET (FP) PO SCH (21:58)
[2020-10-31] MEDS: MELATONIN 1 MG TABLET PO SCH (22:00)
[2020-10-31] MEDS: rOPINIRole HCL 0.5 MG TABLET PO SCH (22:01)
[2020-11-01] MEDS: rOPINIRole HCL 0.25 MG TABLET PO SCH ×2 (06:09→11:18)
[2020-11-01] MEDS: PANTOPRAZOLE 40 MG TABLET PO SCH (09:39)
[2020-11-01] MEDS: DOCUSATE SODIUM 100 MG CAPSULE (FP) PO SCH (09:39)
[2020-11-01] MEDS: ASPIRIN COATED 81 MG TABLET.EC PO SCH (09:39)
[2020-11-01] MEDS: CHOLECALCIFEROL (VIT D3) 1,000 UNIT (25 MCG) TABLET PO SCH (09:39)
[2020-11-01] MEDS: POLYETHYLENE GLYCOL 3350 119 GM BTL PO SCH (09:40)
[2020-11-01] MEDS: FLUDROCORTISONE ACETATE 0.1 MG TABLET (FP) PO SCH (09:47)
[2020-11-01 11:51] VITALS: BP 176/82; PULSE 62; TEMP 97.7
== END 2020-11-01 12:05 ==
LOC: JER 11:47 → JERBED 14:58 → J6WEST-2 21:54
PROVIDERS: ADMIT Internal Medicine; ATTEND Internal Medicine
DX: G20 Parkinson's disease (principal); M62.81 Muscle weakness (generalized); I95.1 Orthostatic hypotension; R42 Dizziness and giddiness; M62.50 Muscle wasting and atrophy, not elsewhere classified, unspecified site; H53.2 Diplopia; R19.5 Other fecal abnormalities; E77.8 Other disorders of glycoprotein metabolism; E88.09 Other disorders of plasma-protein metabolism, not elsewhere classified; G25.81 Restless legs syndrome; F01.51 Vascular dementia, unspecified severity, with behavioral disturbance
CPT/HCPCS: 36415; 70450-TC; 72125-TC; 80053; 80061; 81003; 82550; 82962; 83721; 84484; 85025; 85610; 85730; 86850; 86900; 86901; 93005; 93010; 93306-TC; 93880-TC; 97116-GP; 97162-GP; 99285-25; C9803; G0378; U0003

== ENCOUNTER 2021-04-20 11:20 | Inpatient (IN) | payer OTHER ==
[2021-04-20 11:50] VITALS: BMI 26.7
[2021-04-20 13:12] LABS: BASO % 0.2 % (0-2.0); HEMATOCRIT 39.7 % (32.4-45.2); HEMOGLOBIN 13.7 GM/dL (10.7-15.3); LYMPH % 10.3 % (8-40); MCH 31.4 pg (25.7-33.7); MCHC 34.4 g/dl (32.0-36.0); MEAN CELL VOLUME 91.2 fl (80-96); MEAN PLT VOLUME 8.1 fl (7.5-11.1); MONO % 4.9 % (3.8-10.2); NEUT % 83.6 % (42.8-82.8); PLATELET COUNT 224 10^3/uL (134-434); RBC 4.36 M/mm3 (3.60-5.2); RDW 13.7 % (11.6-15.6); WHITE BLOOD COUNT 8.8 K/mm3 (4.0-10.0)
[2021-04-20 13:45] LABS: CHLORIDE 103 mmol/L (98-107); SODIUM 138 mmol/L (136-145)
[2021-04-20 13:48] LABS: ALBUMIN 3.6 g/dl (3.4-5.0); ANION GAP 8 MMOL/L (8-16); BLOOD UREA NITROGEN 23.2 mg/dL (7-18); CO2 27 mmol/L (21-32); GLUCOSE,RANDOM 173 mg/dL (74-106)
[2021-04-20 13:50] LABS: CREATININE 0.8 mg/dL (0.55-1.3); SGOT/AST 13 U/L (15-37); SGPT/ALT 9 U/L (13-61)
[2021-04-20 13:53] LABS: BILIRUBIN,TOTAL 0.3 mg/dL (0.2-1); TOT PROT 7.2 g/dl (6.4-8.2)
[2021-04-20 13:54] LABS: ALK PHOS 89 U/L (45-117)
[2021-04-20 15:26] LABS: URINE APPEARANCE CLEAR; URINE BILIRUBIN NEGATIVE (NEGATIVE); URINE COLOR YELLOW; URINE GLUCOSE (UA) NEGATIVE (NEGATIVE); URINE KETONE NEGATIVE (NEGATIVE); URINE LEUK ESTERASE NEGATIVE (NEGATIVE); URINE NITRITE NEGATIVE (NEGATIVE); URINE PROTEIN NEGATIVE (NEGATIVE); URINE UROBILINOGEN 0.2 mg/dL (0.2-1.0)
[2021-04-20] MEDS: CARBIDOPA/LEVODOPA 25/250 TABLET (FP) PO SCH ×2 (17:45→21:15)
[2021-04-20] MEDS: PANTOPRAZOLE SODIUM 40 MG VIAL IVPUSH SCH (17:45)
[2021-04-20] MEDS: ENOXAPARIN NA (PORCINE) 40 MG/0.4 ML DISP.SYRIN SQ SCH ×2 (17:45→18:27)
[2021-04-20] MEDS ORDERED: MIDODRINE HCL 5 MG TABLET PO SCH (18:00)
[2021-04-20] MEDS: MELATONIN 5 MG TABLETS PO PRN (21:15)
[2021-04-20] MEDS: D5-1/2NS+10 MEQ KCL - 10 MEQ/1,000 ML INFUS.BAG IV SCH (22:00)
[2021-04-21] MEDS ORDERED: PT OWN MED DRAWER 7, Y5N ONE ×3 (08:12→20:22)
[2021-04-21] MEDS: AMINO ACIDS/PROTEIN HYDROLYS 30 ML LIQUID.PKT PO SCH (08:57)
[2021-04-21 09:25] LABS: BASO % 0.5 % (0-2.0); EOS % 2.7 % (0-4.5); HEMATOCRIT 37.7 % (32.4-45.2); HEMOGLOBIN 13.1 GM/dL (10.7-15.3); LYMPH % 27.9 % (8-40); MCH 31.6 pg (25.7-33.7); MCHC 34.8 g/dl (32.0-36.0); MEAN CELL VOLUME 90.8 fl (80-96); MEAN PLT VOLUME 8.7 fl (7.5-11.1); MONO % 9.1 % (3.8-10.2); NEUT % 59.8 % (42.8-82.8); PLATELET COUNT 225 10^3/uL (134-434); RBC 4.15 M/mm3 (3.60-5.2); RDW 13.8 % (11.6-15.6); WHITE BLOOD COUNT 6.2 K/mm3 (4.0-10.0)
[2021-04-21] MEDS: PANTOPRAZOLE SODIUM 40 MG VIAL IVPUSH SCH (09:26)
[2021-04-21] MEDS: CHOLECALCIFEROL (VIT D3) 1,000 UNIT (25 MCG) TABLET PO SCH (09:26)
[2021-04-21] MEDS: ENOXAPARIN NA (PORCINE) 40 MG/0.4 ML DISP.SYRIN SQ SCH (09:26)
[2021-04-21] MEDS: CARBIDOPA/LEVODOPA 25/250 TABLET (FP) PO SCH ×4 (09:26→21:38)
[2021-04-21] MEDS ORDERED: DOCUSATE SODIUM 100 MG CAPSULE (FP) PO SCH (10:00)
[2021-04-21] MEDS ORDERED: LORATADINE 10 MG TABLET PO SCH (10:00)
[2021-04-21] MEDS ORDERED: FLUDROCORTISONE ACETATE 0.1 MG TABLET (FP) PO SCH (10:00)
[2021-04-21] MEDS ORDERED: DOCUSATE SODIUM 100 MG CAPSULE (FP) PO PRN (10:05)
[2021-04-21 10:12] LABS: CREATININE 0.7 mg/dL (0.55-1.3)
[2021-04-21] MEDS ORDERED: POLYETHYLENE GLYCOL 3350 119 GM BTL PO SCH (10:15)
[2021-04-21] MEDS: CALCIUM CARBONATE 650 MG TABLET PO SCH (11:38)
[2021-04-21] MEDS: D5-1/2NS+10 MEQ KCL - 10 MEQ/1,000 ML INFUS.BAG IV SCH ×2 (13:30→15:08)
[2021-04-21] MEDS: rOPINIRole HCL 0.25 MG TABLET PO SCH ×2 (13:32→17:33)
[2021-04-21] MEDS: DOCUSATE SODIUM 100 MG CAPSULE (FP) PO SCH (21:38)
[2021-04-21] MEDS: rOPINIRole HCL 0.5 MG TABLET PO SCH (21:38)
[2021-04-21] MEDS: MELATONIN 5 MG TABLETS PO PRN (23:13)
[2021-04-22] MEDS: rOPINIRole HCL 0.25 MG TABLET PO SCH ×3 (06:21→17:35)
[2021-04-22 08:13] LABS: BASO % 0.7 % (0-2.0); EOS % 3.5 % (0-4.5); HEMOGLOBIN 13.2 GM/dL (10.7-15.3); LYMPH % 27.6 % (8-40); MCH 31.6 pg (25.7-33.7); MCHC 34.8 g/dl (32.0-36.0); MEAN CELL VOLUME 90.7 fl (80-96); MEAN PLT VOLUME 8.7 fl (7.5-11.1); NEUT % 59.2 % (42.8-82.8); PLATELET COUNT 222 10^3/uL (134-434); RBC 4.19 M/mm3 (3.60-5.2); RDW 13.4 % (11.6-15.6); WHITE BLOOD COUNT 6.2 K/mm3 (4.0-10.0)
[2021-04-22 08:23] LABS: BLOOD UREA NITROGEN 19.1 mg/dL (7-18); CALCIUM 8.8 mg/dL (8.5-10.1)
[2021-04-22 08:27] LABS: CREATININE 0.7 mg/dL (0.55-1.3)
[2021-04-22] MEDS ORDERED: diphenhydrAMINE HCL 12.5 MG/5 ML UNIT-DOSE CUPS PO PRN (09:02)
[2021-04-22] MEDS: POLYETHYLENE GLYCOL (HEALTHYLAX) 3350 17 GM PACKET PO SCH (09:38)
[2021-04-22] MEDS: ENOXAPARIN NA (PORCINE) 40 MG/0.4 ML DISP.SYRIN SQ SCH (09:38)
[2021-04-22] MEDS: PANTOPRAZOLE SODIUM 40 MG VIAL IVPUSH SCH (09:38)
[2021-04-22] MEDS: CALCIUM CARBONATE 650 MG TABLET PO SCH (09:38)
[2021-04-22] MEDS: CHOLECALCIFEROL (VIT D3) 1,000 UNIT (25 MCG) TABLET PO SCH (09:38)
[2021-04-22] MEDS: CARBIDOPA/LEVODOPA 25/250 TABLET (FP) PO SCH ×4 (09:38→21:38)
[2021-04-22] MEDS: DOCUSATE SODIUM 100 MG CAPSULE (FP) PO SCH ×2 (09:38→21:38)
[2021-04-22] MEDS: AMINO ACIDS/PROTEIN HYDROLYS 30 ML LIQUID.PKT PO SCH (09:38)
[2021-04-22] MEDS: D5-1/2NS+10 MEQ KCL - 10 MEQ/1,000 ML INFUS.BAG IV SCH (18:00)
[2021-04-22] MEDS ORDERED: PT OWN MED DRAWER 7, Y5N ONE (20:17)
[2021-04-22] MEDS ORDERED: D5-1/2NS+10 MEQ KCL - 10 MEQ/1,000 ML INFUS.BAG IV SCH (21:00)
[2021-04-22] MEDS: MELATONIN 5 MG TABLETS PO PRN (21:38)
[2021-04-22] MEDS: rOPINIRole HCL 0.5 MG TABLET PO SCH (21:38)
[2021-04-23 03:14] VITALS: TEMP 98.4
[2021-04-23] MEDS ORDERED: PT OWN MED DRAWER 7, Y5N ONE ×4 (04:31→11:23)
[2021-04-23] MEDS: rOPINIRole HCL 0.25 MG TABLET PO SCH ×2 (06:16→11:39)
[2021-04-23 07:52] LABS: BASO % 0.5 % (0-2.0); EOS % 3.4 % (0-4.5); HEMATOCRIT 39.7 % (32.4-45.2); HEMOGLOBIN 13.7 GM/dL (10.7-15.3); LYMPH % 30.8 % (8-40); MCH 31.4 pg (25.7-33.7); MCHC 34.4 g/dl (32.0-36.0); MEAN CELL VOLUME 91.4 fl (80-96); MEAN PLT VOLUME 8.4 fl (7.5-11.1); MONO % 8.6 % (3.8-10.2); NEUT % 56.7 % (42.8-82.8); PLATELET COUNT 248 10^3/uL (134-434); RBC 4.35 M/mm3 (3.60-5.2); RDW 13.5 % (11.6-15.6); WHITE BLOOD COUNT 5.9 K/mm3 (4.0-10.0)
[2021-04-23 08:23] LABS: BLOOD UREA NITROGEN 20.8 mg/dL (7-18); CALCIUM 8.8 mg/dL (8.5-10.1)
[2021-04-23 08:26] LABS: CREATININE 0.6 mg/dL (0.55-1.3)
[2021-04-23] MEDS: AMINO ACIDS/PROTEIN HYDROLYS 30 ML LIQUID.PKT PO SCH (09:35)
[2021-04-23] MEDS: ENOXAPARIN NA (PORCINE) 40 MG/0.4 ML DISP.SYRIN SQ SCH (09:35)
[2021-04-23] MEDS: POLYETHYLENE GLYCOL (HEALTHYLAX) 3350 17 GM PACKET PO SCH (09:35)
[2021-04-23] MEDS: CALCIUM CARBONATE 650 MG TABLET PO SCH (09:36)
[2021-04-23] MEDS: CHOLECALCIFEROL (VIT D3) 1,000 UNIT (25 MCG) TABLET PO SCH (09:36)
[2021-04-23] MEDS: DOCUSATE SODIUM 100 MG CAPSULE (FP) PO SCH (09:36)
[2021-04-23] MEDS: CARBIDOPA/LEVODOPA 25/250 TABLET (FP) PO SCH (09:36)
[2021-04-23] MEDS: FLUDROCORTISONE ACETATE 0.1 MG TABLET (FP) PO SCH ×2 (09:38→09:44)
[2021-04-23 09:40] VITALS: BP 131/72; PULSE 94
[2021-04-23] MEDS ORDERED: PANTOPRAZOLE 40 MG TABLET PO SCH (10:00)
== END 2021-04-23 13:33 | disposition home or self-care (01) | DRG 312 ==
LOC: JER 11:20 → OBSVTOIN 14:20 → JERBED 14:20 → J4W 17:38
PROVIDERS: ADMIT Internal Medicine; ATTEND Internal Medicine
DX: I95.1 Orthostatic hypotension (principal); G20 Parkinson's disease; I10 Essential (primary) hypertension; H53.2 Diplopia; F41.8 Other specified anxiety disorders; I25.10 Atherosclerotic heart disease of native coronary artery without angina pectoris; K59.09 Other constipation; R11.2 Nausea with vomiting, unspecified; M62.81 Muscle weakness (generalized)
CPT/HCPCS: 36415; 71045-TC-FY; 80048; 80053; 81003; 82550; 84484; 85025; 87086; 93005; 93010; 97116-GP; 97161-GP; 99285-25; C9803; U0003; U0005

== ENCOUNTER 2021-09-24 11:54 | Observation (INO) | payer OTHER ==
[2021-09-24 12:54] VITALS: BMI 25.7
[2021-09-24 13:17] LABS: BASO % 0.3 % (0-2.0); EOS % 1.1 % (0-4.5); HEMATOCRIT 40.3 % (32.4-45.2); HEMOGLOBIN 13.6 GM/dL (10.7-15.3); LYMPH % 9.6 % (8-40); MCH 30.7 pg (25.7-33.7); MCHC 33.9 g/dl (32.0-36.0); MEAN CELL VOLUME 90.7 fl (80-96); PLATELET COUNT 247 10^3/uL (134-434); RBC 4.44 M/mm3 (3.60-5.2); RDW 13.9 % (11.6-15.6)
[2021-09-24 13:19] LABS: INR 1.01 (0.83-1.09); PROTHROMBIN TIME (PATIENT) 11.6 SEC (9.7-13.0)
[2021-09-24 13:21] LABS: ACTIVATED PTT 27.6 SECONDS (25.2-36.5)
[2021-09-24] MEDS ORDERED: MAGNESIUM SULF 50% (8.12 MEQ/2 ML-1 GM VIAL) IVPB ONE (13:30)
[2021-09-24 13:32] LABS: SODIUM 136 mmol/L (136-145)
[2021-09-24 13:34] LABS: CALCIUM 9.2 mg/dL (8.5-10.1)
[2021-09-24] MEDS ORDERED: MAGNESIUM SULFATE IN WATER 2 GM/50 ML IVPB IVPB ONE (13:34)
[2021-09-24 13:35] LABS: ALBUMIN 3.5 g/dl (3.4-5.0); BLOOD UREA NITROGEN 19.9 mg/dL (7-18); CO2 29 mmol/L (21-32); GLUCOSE,RANDOM 144 mg/dL (74-106)
[2021-09-24 13:38] LABS: CREATININE 0.8 mg/dL (0.55-1.3); SGOT/AST 14 U/L (15-37); SGPT/ALT 10 U/L (13-61)
[2021-09-24 13:39] LABS: BILIRUBIN,TOTAL 0.4 mg/dL (0.2-1)
[2021-09-24 13:41] LABS: ALK PHOS 98 U/L (45-117)
[2021-09-24 13:46] LABS: ANION GAP 5 MMOL/L (8-16); CHLORIDE 102 mmol/L (98-107)
[2021-09-24 14:20] LABS: MAGNESIUM 2.3 mg/dL (1.8-2.4)
[2021-09-24 14:53] LABS: PH,URINE 7.5 (5.0-8.0); URINE APPEARANCE CLEAR; URINE BILIRUBIN NEGATIVE (NEGATIVE); URINE COLOR YELLOW; URINE GLUCOSE (UA) NEGATIVE (NEGATIVE); URINE KETONE NEGATIVE (NEGATIVE); URINE LEUK ESTERASE NEGATIVE (NEGATIVE); URINE NITRITE NEGATIVE (NEGATIVE); URINE PROTEIN NEGATIVE (NEGATIVE); URINE UROBILINOGEN 0.2 mg/dL (0.2-1.0)
[2021-09-24] MEDS ORDERED: POTASSIUM CHLORIDE TABS 20 MEQ TABLET.ER (FP) PO ONE ×2 (15:16→16:36)
[2021-09-24] MEDS ORDERED: rOPINIRole HCL 0.25 MG TABLET PO SCH (18:00)
[2021-09-24] MEDS ORDERED: CARBIDOPA/LEVODOPA 25/250 TABLET (FP) ONE (18:30)
[2021-09-24] MEDS: CARBIDOPA/LEVODOPA 25/250 TABLET (FP) PO SCH ×3 (18:35→23:07)
[2021-09-24] MEDS ORDERED: rOPINIRole HCL 0.5 MG TABLET PO SCH (22:00)
[2021-09-24] MEDS ORDERED: MELATONIN 5 MG TABLETS PO SCH (22:00)
[2021-09-24] MEDS ORDERED: ACETAMINOPHEN 325 MG TABLET (FP) PO PRN (22:15)
[2021-09-25] MEDS: rOPINIRole HCL 0.25 MG TABLET PO SCH ×2 (06:29→14:04)
[2021-09-25] MEDS ORDERED: AMINO ACIDS/PROTEIN HYDROLYS 30 ML LIQUID.PKT PO SCH (08:00)
[2021-09-25] MEDS ORDERED: diphenhydrAMINE HCL 12.5 MG/5 ML UNIT-DOSE CUPS PO PRN (08:11)
[2021-09-25] MEDS ORDERED: FLUDROCORTISONE ACETATE 0.1 MG TABLET (FP) PO SCH (10:00)
[2021-09-25] MEDS ORDERED: POLYETHYLENE GLYCOL (HEALTHYLAX) 3350 17 GM PACKET PO SCH (10:00)
[2021-09-25] MEDS ORDERED: CHOLECALCIFEROL (VIT D3) 5000 UNITS (125 MCG) CAP PO SCH (10:00)
[2021-09-25] MEDS: CARBIDOPA/LEVODOPA 25/250 TABLET (FP) PO SCH ×3 (10:17→17:08)
[2021-09-25] MEDS ORDERED: ENOXAPARIN NA (PORCINE) 40 MG/0.4 ML DISP.SYRIN SQ SCH (10:45)
[2021-09-25] MEDS ORDERED: PANTOPRAZOLE 40 MG TABLET PO SCH (11:00)
[2021-09-25 14:46] VITALS: BP 102/52; PULSE 79; TEMP 97.5
== END 2021-09-25 18:57 | disposition home or self-care (01) ==
LOC: JER 11:54 → JERBED 14:15 → J4W 20:55
PROVIDERS: ADMIT Internal Medicine; ATTEND Internal Medicine
PROC: 3E023GC Introduction of Other Therapeutic Substance into Muscle, Percutaneous Approach (ICD-10-PCS; principal; 2021-09-24)
PROC: 3E033GC Introduction of Other Therapeutic Substance into Peripheral Vein, Percutaneous Approach (ICD-10-PCS; 2021-09-24)
DX: S06.0X9A Concussion with loss of consciousness of unspecified duration, initial encounter (principal); G20 Parkinson's disease; I95.1 Orthostatic hypotension; E78.5 Hyperlipidemia, unspecified; Z88.8 Allergy status to other drugs, medicaments and biological substances; K56.2 Volvulus; W18.39XA Other fall on same level, initial encounter; Y93.89 Activity, other specified; Y92.009 Unspecified place in unspecified non-institutional (private) residence as the place of occurrence of the external cause; M62.81 Muscle weakness (generalized)
CPT/HCPCS: 36415; 70450-TC; 71045-TC-FY; 72170-TC-FY; 80053; 81003; 83735; 84484; 85025; 85610; 85730; 87086; 87804; 93005; 93010; 96372; 96374; 97116-GP; 97161-GP; 99285-25; C9803; G0378; U0003; U0005

== ENCOUNTER 2021-10-19 16:38 | Inpatient (IN) | payer OTHER ==
[2021-10-19] MEDS ORDERED: ONDANSETRON 4 MG/2 ML VIAL IVPUSH ONE (17:25)
[2021-10-19] MEDS ORDERED: SODIUM CHLORIDE 0.9% 500 ML INFUS.BAG IV ONE (17:25)
[2021-10-19] MEDS ORDERED: FAMOTIDINE 20 MG/50 ML IVPB 20 MG/50 ML MG IVPB ONE ×2 (17:25→17:47)
[2021-10-19] MEDS ORDERED: ONDANSETRON 4 MG/2 ML VIAL ONE (17:47)
[2021-10-19 18:43] LABS: BASO % 0.5 % (0-2.0); EOS % 2.4 % (0-4.5); HEMATOCRIT 40.2 % (32.4-45.2); HEMOGLOBIN 13.7 GM/dL (10.7-15.3); LYMPH % 24.8 % (8-40); MCH 30.9 pg (25.7-33.7); MCHC 34.1 g/dl (32.0-36.0); MEAN CELL VOLUME 90.6 fl (80-96); MEAN PLT VOLUME 8.2 fl (7.5-11.1); MONO % 8.8 % (3.8-10.2); NEUT % 63.5 % (42.8-82.8); PLATELET COUNT 253 10^3/uL (134-434); RBC 4.44 M/mm3 (3.60-5.2); RDW 13.8 % (11.6-15.6)
[2021-10-19 19:11] LABS: CALCIUM 9.8 mg/dL (8.5-10.1)
[2021-10-19 19:12] LABS: ALBUMIN 3.7 g/dl (3.4-5.0); BLOOD UREA NITROGEN 20.2 mg/dL (7-18)
[2021-10-19 19:16] LABS: BILIRUBIN,TOTAL 0.5 mg/dL (0.2-1); CREATININE 0.7 mg/dL (0.55-1.3); TOT PROT 7.3 g/dl (6.4-8.2)
[2021-10-19 21:20] LABS: PH,URINE 6.5 (5.0-8.0); URINE APPEARANCE CLEAR; URINE BILIRUBIN NEGATIVE (NEGATIVE); URINE COLOR YELLOW; URINE GLUCOSE (UA) NEGATIVE (NEGATIVE); URINE KETONE NEGATIVE (NEGATIVE); URINE LEUK ESTERASE NEGATIVE (NEGATIVE); URINE NITRITE NEGATIVE (NEGATIVE); URINE PROTEIN NEGATIVE (NEGATIVE); URINE UROBILINOGEN 0.2 mg/dL (0.2-1.0)
[2021-10-19] MEDS ORDERED: diphenhydrAMINE HCL 12.5 MG/5 ML UNIT-DOSE CUPS PO PRN (21:49)
[2021-10-19] MEDS ORDERED: PANTOPRAZOLE 40 MG TABLET PO SCH (22:00)
[2021-10-19] MEDS ORDERED: PANTOPRAZOLE SODIUM 40 MG VIAL ONE (22:31)
[2021-10-19] MEDS ORDERED: CARBIDOPA/LEVODOPA 25/250 TABLET (FP) ONE (22:31)
[2021-10-19] MEDS: PANTOPRAZOLE SODIUM 40 MG VIAL IVPUSH SCH (22:40)
[2021-10-19] MEDS: CARBIDOPA/LEVODOPA 25/250 TABLET (FP) PO SCH (22:40)
[2021-10-19] MEDS: D5-1/2NS+20 MEQ KCL - 20 MEQ/1,000 ML INFUS.BAG IV SCH (23:47)
[2021-10-20 03:15] VITALS: BMI 26.8
[2021-10-20] MEDS ORDERED: AMINO ACIDS/PROTEIN HYDROLYS 30 ML LIQUID.PKT PO SCH (08:00)
[2021-10-20] MEDS: PANTOPRAZOLE SODIUM 40 MG VIAL IVPUSH SCH (09:01)
[2021-10-20] MEDS: CARBIDOPA/LEVODOPA 25/250 TABLET (FP) PO SCH ×4 (09:02→21:33)
[2021-10-20] MEDS: AMINO ACIDS/PROTEIN HYDROLYS 30 ML LIQUID.PKT PO SCH (09:09)
[2021-10-20] MEDS: CHOLECALCIFEROL (VIT D3) 5000 UNITS (125 MCG) CAP PO SCH (09:09)
[2021-10-20 09:30] LABS: BASO % 0.8 % (0-2.0); EOS % 2.8 % (0-4.5); HEMATOCRIT 37.9 % (32.4-45.2); HEMOGLOBIN 12.6 GM/dL (10.7-15.3); LYMPH % 29.5 % (8-40); MCH 30.1 pg (25.7-33.7); MCHC 33.1 g/dl (32.0-36.0); MEAN PLT VOLUME 8.1 fl (7.5-11.1); MONO % 10.2 % (3.8-10.2); NEUT % 56.7 % (42.8-82.8); PLATELET COUNT 228 10^3/uL (134-434); RBC 4.16 M/mm3 (3.60-5.2); RDW 13.7 % (11.6-15.6); WHITE BLOOD COUNT 5.4 K/mm3 (4.0-10.0)
[2021-10-20 09:55] LABS: BLOOD UREA NITROGEN 14.6 mg/dL (7-18); CALCIUM 8.8 mg/dL (8.5-10.1)
[2021-10-20 09:59] LABS: CREATININE 0.6 mg/dL (0.55-1.3)
[2021-10-20] MEDS: D5-1/2NS+20 MEQ KCL - 20 MEQ/1,000 ML INFUS.BAG IV SCH (10:30)
[2021-10-20 10:53] LABS: MAGNESIUM 2.3 mg/dL (1.8-2.4)
[2021-10-20] MEDS: LACTATED RINGERS SOLUTION 1,000 ML/1,000 ML INFUS.BAG IV SCH (11:30)
[2021-10-21] MEDS: LACTATED RINGERS SOLUTION 1,000 ML/1,000 ML INFUS.BAG IV SCH ×2 (07:39→13:04)
[2021-10-21] MEDS: AMINO ACIDS/PROTEIN HYDROLYS 30 ML LIQUID.PKT PO SCH (10:17)
[2021-10-21] MEDS: CARBIDOPA/LEVODOPA 25/250 TABLET (FP) PO SCH ×4 (10:17→21:45)
[2021-10-21] MEDS: PANTOPRAZOLE SODIUM 40 MG VIAL IVPUSH SCH (10:17)
[2021-10-21] MEDS: CHOLECALCIFEROL (VIT D3) 5000 UNITS (125 MCG) CAP PO SCH (10:18)
[2021-10-21] MEDS: FLUTICASONE PROP 0.05% 16 GM NASAL SPRAY NS SCH ×2 (10:18→21:45)
[2021-10-21 10:27] LABS: BASO % 0.4 % (0-2.0); EOS % 2.2 % (0-4.5); LYMPH % 20.6 % (8-40); MCH 30.5 pg (25.7-33.7); MCHC 33.4 g/dl (32.0-36.0); MEAN CELL VOLUME 91.4 fl (80-96); MEAN PLT VOLUME 8.2 fl (7.5-11.1); MONO % 9.3 % (3.8-10.2); NEUT % 67.5 % (42.8-82.8); PLATELET COUNT 227 10^3/uL (134-434); RBC 4.27 M/mm3 (3.60-5.2); RDW 13.4 % (11.6-15.6); WHITE BLOOD COUNT 5.8 K/mm3 (4.0-10.0)
[2021-10-21 10:48] LABS: BLOOD UREA NITROGEN 10.7 mg/dL (7-18); CALCIUM 8.9 mg/dL (8.5-10.1)
[2021-10-21 10:52] LABS: CREATININE 0.7 mg/dL (0.55-1.3)
[2021-10-21] MEDS: KCL 10 MEQ IVPB 10 MEQ/100 ML INFUS.BAG IVPB SCH ×3 (12:54→15:25)
[2021-10-21] MEDS: POLYETHYLENE GLYCOL (HEALTHYLAX) 3350 17 GM PACKET PO SCH (21:45)
[2021-10-22] MEDS: diphenhydrAMINE HCL 12.5 MG/5 ML UNIT-DOSE CUPS PO PRN ×2 (02:10→10:41)
[2021-10-22] MEDS: LACTATED RINGERS SOLUTION 1,000 ML/1,000 ML INFUS.BAG IV SCH ×3 (08:05→21:16)
[2021-10-22] MEDS: FLUTICASONE PROP 0.05% 16 GM NASAL SPRAY NS SCH ×2 (09:34→21:09)
[2021-10-22] MEDS: CARBIDOPA/LEVODOPA 25/250 TABLET (FP) PO SCH ×3 (09:34→18:13)
[2021-10-22] MEDS: PANTOPRAZOLE 40 MG TABLET PO SCH (09:34)
[2021-10-22] MEDS: AMINO ACIDS/PROTEIN HYDROLYS 30 ML LIQUID.PKT PO SCH (09:34)
[2021-10-22] MEDS: POLYETHYLENE GLYCOL (HEALTHYLAX) 3350 17 GM PACKET PO SCH ×3 (09:34→21:08)
[2021-10-22] MEDS: CHOLECALCIFEROL (VIT D3) 5000 UNITS (125 MCG) CAP PO SCH (09:42)
[2021-10-22 12:35] LABS: BASO % 0.5 % (0-2.0); EOS % 2.1 % (0-4.5); HEMATOCRIT 38.6 % (32.4-45.2); HEMOGLOBIN 12.8 GM/dL (10.7-15.3); MCH 30.3 pg (25.7-33.7); MCHC 33.1 g/dl (32.0-36.0); MEAN CELL VOLUME 91.4 fl (80-96); MEAN PLT VOLUME 8.6 fl (7.5-11.1); MONO % 9.8 % (3.8-10.2); NEUT % 67.6 % (42.8-82.8); PLATELET COUNT 233 10^3/uL (134-434); RBC 4.22 M/mm3 (3.60-5.2); RDW 13.3 % (11.6-15.6); WHITE BLOOD COUNT 5.5 K/mm3 (4.0-10.0)
[2021-10-22 12:59] LABS: CALCIUM 8.7 mg/dL (8.5-10.1)
[2021-10-22 13:03] LABS: CREATININE 0.6 mg/dL (0.55-1.3)
[2021-10-22] MEDS: KCL 10 MEQ IVPB 10 MEQ/100 ML INFUS.BAG IVPB SCH ×3 (16:24→21:08)
[2021-10-22] MEDS ORDERED: CARBIDOPA/LEVODOPA 25/250 TABLET (FP) PO SCH ×2 (20:21→20:27)
[2021-10-22] MEDS: DOCUSATE SODIUM 100 MG CAPSULE (FP) PO SCH (21:08)
[2021-10-23] MEDS: CARBIDOPA/LEVODOPA 25/250 TABLET (FP) PO SCH ×4 (05:28→17:24)
[2021-10-23] MEDS: POLYETHYLENE GLYCOL (HEALTHYLAX) 3350 17 GM PACKET PO SCH ×4 (05:28→21:07)
[2021-10-23 09:33] LABS: BASO % 0.4 % (0-2.0); EOS % 3.1 % (0-4.5); HEMATOCRIT 35.1 % (32.4-45.2); HEMOGLOBIN 12.4 GM/dL (10.7-15.3); LYMPH % 21.2 % (8-40); MCH 31.7 pg (25.7-33.7); MCHC 35.3 g/dl (32.0-36.0); MEAN PLT VOLUME 7.8 fl (7.5-11.1); MONO % 10.3 % (3.8-10.2); PLATELET COUNT 201 10^3/uL (134-434); RDW 13.1 % (11.6-15.6); WHITE BLOOD COUNT 6.3 K/mm3 (4.0-10.0)
[2021-10-23] MEDS: PANTOPRAZOLE 40 MG TABLET PO SCH (09:56)
[2021-10-23] MEDS: FLUTICASONE PROP 0.05% 16 GM NASAL SPRAY NS SCH ×2 (09:58→21:08)
[2021-10-23] MEDS: CHOLECALCIFEROL (VIT D3) 5000 UNITS (125 MCG) CAP PO SCH (10:00)
[2021-10-23] MEDS: LACTATED RINGERS SOLUTION 1,000 ML/1,000 ML INFUS.BAG IV SCH ×2 (10:08→23:00)
[2021-10-23 10:52] LABS: BLOOD UREA NITROGEN 12.9 mg/dL (7-18); CALCIUM 8.5 mg/dL (8.5-10.1)
[2021-10-23 10:56] LABS: CREATININE 0.6 mg/dL (0.55-1.3)
[2021-10-23] MEDS ORDERED: POTASSIUM CHLORIDE TABS 20 MEQ TABLET.ER (FP) PO ONE ×2 (11:03→14:15)
[2021-10-23] MEDS: AMINO ACIDS/PROTEIN HYDROLYS 30 ML LIQUID.PKT PO SCH (14:51)
[2021-10-23] MEDS: DOCUSATE SODIUM 100 MG CAPSULE (FP) PO SCH (21:07)
[2021-10-24] MEDS: POLYETHYLENE GLYCOL (HEALTHYLAX) 3350 17 GM PACKET PO SCH ×3 (05:47→21:28)
[2021-10-24] MEDS: CARBIDOPA/LEVODOPA 25/250 TABLET (FP) PO SCH ×4 (05:47→17:10)
[2021-10-24] MEDS ORDERED: FLUDROCORTISONE ACETATE 0.1 MG TABLET (FP) PO SCH (08:00)
[2021-10-24] MEDS ORDERED: SENNOSIDES 8.6MG TABLET (FP) PO SCH (10:00)
[2021-10-24] MEDS: FLUDROCORTISONE ACETATE 0.1 MG TABLET (FP) PO SCH ×2 (10:19→11:30)
[2021-10-24] MEDS: LACTATED RINGERS SOLUTION 1,000 ML/1,000 ML INFUS.BAG IV SCH (10:21)
[2021-10-24] MEDS: AMINO ACIDS/PROTEIN HYDROLYS 30 ML LIQUID.PKT PO SCH (10:22)
[2021-10-24] MEDS: FLUTICASONE PROP 0.05% 16 GM NASAL SPRAY NS SCH ×2 (10:22→21:28)
[2021-10-24] MEDS: PANTOPRAZOLE 40 MG TABLET PO SCH (10:22)
[2021-10-24] MEDS: CHOLECALCIFEROL (VIT D3) 5000 UNITS (125 MCG) CAP PO SCH (10:23)
[2021-10-24 10:47] LABS: BASO % 0.6 % (0-2.0); EOS % 3.2 % (0-4.5); HEMATOCRIT 37.1 % (32.4-45.2); HEMOGLOBIN 12.4 GM/dL (10.7-15.3); MCH 30.4 pg (25.7-33.7); MCHC 33.4 g/dl (32.0-36.0); MEAN CELL VOLUME 90.8 fl (80-96); MEAN PLT VOLUME 8.2 fl (7.5-11.1); MONO % 8.3 % (3.8-10.2); NEUT % 69.9 % (42.8-82.8); PLATELET COUNT 224 10^3/uL (134-434); RBC 4.08 M/mm3 (3.60-5.2); RDW 13.4 % (11.6-15.6); WHITE BLOOD COUNT 6.1 K/mm3 (4.0-10.0)
[2021-10-24 11:10] LABS: CALCIUM 8.6 mg/dL (8.5-10.1)
[2021-10-24 11:14] LABS: CREATININE 0.6 mg/dL (0.55-1.3)
[2021-10-24] MEDS ORDERED: POTASSIUM CHLORIDE TABS 20 MEQ TABLET.ER (FP) PO ONE (12:45)
[2021-10-24] MEDS: SENNOSIDES 8.6MG TABLET (FP) PO SCH (21:28)
[2021-10-25] MEDS: CARBIDOPA/LEVODOPA 25/250 TABLET (FP) PO SCH ×4 (06:29→17:08)
[2021-10-25] MEDS: LACTATED RINGERS SOLUTION 1,000 ML/1,000 ML INFUS.BAG IV SCH (08:12)
[2021-10-25 09:49] LABS: CALCIUM 8.7 mg/dL (8.5-10.1)
[2021-10-25 09:50] LABS: BLOOD UREA NITROGEN 11.7 mg/dL (7-18)
[2021-10-25 09:52] LABS: CREATININE 0.6 mg/dL (0.55-1.3)
[2021-10-25] MEDS: POLYETHYLENE GLYCOL (HEALTHYLAX) 3350 17 GM PACKET PO SCH ×2 (10:10→21:54)
[2021-10-25] MEDS: FLUTICASONE PROP 0.05% 16 GM NASAL SPRAY NS SCH ×2 (10:10→21:55)
[2021-10-25] MEDS: SENNOSIDES 8.6MG TABLET (FP) PO SCH ×2 (10:11→21:53)
[2021-10-25] MEDS: FLUDROCORTISONE ACETATE 0.1 MG TABLET (FP) PO SCH (10:11)
[2021-10-25] MEDS: AMINO ACIDS/PROTEIN HYDROLYS 30 ML LIQUID.PKT PO SCH (10:12)
[2021-10-25] MEDS: CHOLECALCIFEROL (VIT D3) 5000 UNITS (125 MCG) CAP PO SCH (10:12)
[2021-10-25] MEDS ORDERED: POTASSIUM CHLORIDE TABS 20 MEQ TABLET.ER (FP) PO ONE (12:31)
[2021-10-26] MEDS: CARBIDOPA/LEVODOPA 25/250 TABLET (FP) PO SCH ×6 (06:30→19:58)
[2021-10-26 09:05] LABS: BASO % 0.8 % (0-2.0); EOS % 4.4 % (0-4.5); HEMATOCRIT 38.8 % (32.4-45.2); HEMOGLOBIN 13.1 GM/dL (10.7-15.3); LYMPH % 26.3 % (8-40); MCH 30.6 pg (25.7-33.7); MCHC 33.7 g/dl (32.0-36.0); MEAN CELL VOLUME 90.8 fl (80-96); MEAN PLT VOLUME 8.1 fl (7.5-11.1); MONO % 8.7 % (3.8-10.2); NEUT % 59.8 % (42.8-82.8); PLATELET COUNT 236 10^3/uL (134-434); RBC 4.28 M/mm3 (3.60-5.2); RDW 13.1 % (11.6-15.6)
[2021-10-26] MEDS: FLUTICASONE PROP 0.05% 16 GM NASAL SPRAY NS SCH ×2 (09:28→21:39)
[2021-10-26] MEDS: POLYETHYLENE GLYCOL (HEALTHYLAX) 3350 17 GM PACKET PO SCH ×2 (09:29→21:34)
[2021-10-26] MEDS: CHOLECALCIFEROL (VIT D3) 5000 UNITS (125 MCG) CAP PO SCH (09:29)
[2021-10-26] MEDS: AMINO ACIDS/PROTEIN HYDROLYS 30 ML LIQUID.PKT PO SCH (09:29)
[2021-10-26] MEDS: FLUDROCORTISONE ACETATE 0.1 MG TABLET (FP) PO SCH (09:31)
[2021-10-26 09:42] LABS: CALCIUM 8.6 mg/dL (8.5-10.1)
[2021-10-26 09:43] LABS: BLOOD UREA NITROGEN 12.9 mg/dL (7-18)
[2021-10-26 09:46] LABS: CREATININE 0.7 mg/dL (0.55-1.3)
[2021-10-26] MEDS: LACTATED RINGERS SOLUTION 1,000 ML/1,000 ML INFUS.BAG IV SCH (11:01)
[2021-10-26 11:08] LABS: SARS-CoV-2 NAA Not Detected (Not Detected)
[2021-10-26] MEDS: FAMOTIDINE 20 MG TABLET PO SCH ×2 (11:27→21:34)
[2021-10-26] MEDS ORDERED: POTASSIUM CHLORIDE TABS 20 MEQ TABLET.ER (FP) PO ONE (12:13)
[2021-10-26] MEDS: SENNOSIDES 8.6MG TABLET (FP) PO SCH (21:34)
[2021-10-27] MEDS: CARBIDOPA/LEVODOPA 25/250 TABLET (FP) PO SCH ×2 (07:56→11:43)
[2021-10-27] MEDS: AMINO ACIDS/PROTEIN HYDROLYS 30 ML LIQUID.PKT PO SCH (09:40)
[2021-10-27] MEDS: CHOLECALCIFEROL (VIT D3) 5000 UNITS (125 MCG) CAP PO SCH (09:40)
[2021-10-27] MEDS: POLYETHYLENE GLYCOL (HEALTHYLAX) 3350 17 GM PACKET PO SCH (09:40)
[2021-10-27] MEDS: FLUTICASONE PROP 0.05% 16 GM NASAL SPRAY NS SCH (09:40)
[2021-10-27] MEDS: FAMOTIDINE 20 MG TABLET PO SCH (09:40)
[2021-10-27] MEDS: FLUDROCORTISONE ACETATE 0.1 MG TABLET (FP) PO SCH (09:41)
[2021-10-27 13:16] VITALS: BP 107/55; PULSE 79; TEMP 97.6
== END 2021-10-27 14:34 | DRG 390 ==
LOC: JER 16:38 → JERBED 20:54 → J6S 10-20 01:25
PROVIDERS: ADMIT Internal Medicine; ATTEND Internal Medicine
DX: K56.7 Ileus, unspecified (principal); D25.9 Leiomyoma of uterus, unspecified; I10 Essential (primary) hypertension; G20 Parkinson's disease; G47.52 REM sleep behavior disorder; G25.81 Restless legs syndrome; R26.81 Unsteadiness on feet; R10.84 Generalized abdominal pain; R11.0 Nausea; I95.1 Orthostatic hypotension; M62.81 Muscle weakness (generalized); R14.0 Abdominal distension (gaseous); K56.2 Volvulus; R10.31 Right lower quadrant pain; E78.5 Hyperlipidemia, unspecified; E87.6 Hypokalemia; K59.81 Ogilvie syndrome
CPT/HCPCS: 36415; 71046-TC-FY; 74018-TC-FY; 74019-TC-FY; 74176-TC; 74230-TC-FY; 74270-TC-FY; 80048; 80053; 81003; 82962; 83690; 83735; 84484; 85025; 86850; 86900; 86901; 87086; 92611-GN; 93005; 93010; 97116-GP; 97162-GP; 99285-25; C9803; U0003; U0005

== ENCOUNTER 2022-09-30 17:04 | Inpatient (IN) | payer OTHER ==
[2022-09-30 17:33] VITALS: BMI 24.2
[2022-09-30 20:16] LABS: BASO % 0.7 % (0-2.0); EOS % 1.3 % (0-4.5); HEMATOCRIT 38.9 % (32.4-45.2); HEMOGLOBIN 12.9 GM/dL (10.7-15.3); LYMPH % 14.4 % (8-40); MCH 30.2 pg (25.7-33.7); MCHC 33.2 g/dl (32.0-36.0); MEAN PLT VOLUME 8.4 fl (7.5-11.1); MONO % 7.2 % (3.8-10.2); NEUT % 76.4 % (42.8-82.8); PLATELET COUNT 233 10^3/uL (134-434); RBC 4.27 M/mm3 (3.60-5.2); WHITE BLOOD COUNT 8.7 K/mm3 (4.0-10.0)
[2022-09-30 20:49] LABS: ALBUMIN 3.5 g/dl (3.4-5.0); BLOOD UREA NITROGEN 22.9 mg/dL (7-18); CALCIUM 9.1 mg/dL (8.5-10.1)
[2022-09-30 20:53] LABS: CREATININE 0.9 mg/dL (0.55-1.3)
[2022-09-30 20:54] LABS: BILIRUBIN,TOTAL 0.3 mg/dL (0.2-1); TOT PROT 6.9 g/dl (6.4-8.2)
[2022-09-30 20:55] LABS: URINE APPEARANCE CLEAR; URINE BILIRUBIN NEGATIVE (NEGATIVE); URINE COLOR YELLOW; URINE GLUCOSE (UA) NEGATIVE (NEGATIVE); URINE KETONE NEGATIVE (NEGATIVE); URINE LEUK ESTERASE NEGATIVE (NEGATIVE); URINE NITRITE NEGATIVE (NEGATIVE); URINE PROTEIN NEGATIVE (NEGATIVE); URINE UROBILINOGEN 0.2 mg/dL (0.2-1.0)
[2022-09-30] MEDS ORDERED: diphenhydrAMINE HCL 12.5 MG/5 ML UNIT-DOSE CUPS PO PRN (22:45)
[2022-09-30] MEDS ORDERED: MELATONIN 5 MG TABLETS PO SCH (22:46)
[2022-09-30] MEDS ORDERED: rOPINIRole HCL 0.5 MG TABLET PO SCH (22:57)
[2022-09-30] MEDS ORDERED: SENNOSIDES 8.6MG TABLET (FP) PO SCH (22:57)
[2022-09-30] MEDS ORDERED: D5-1/2NS+10 MEQ KCL - 10 MEQ/1,000 ML INFUS.BAG IV SCH (23:00)
[2022-09-30] MEDS ORDERED: DOCUSATE SODIUM 100 MG CAPSULE (FP) PO SCH (23:01)
[2022-10-01] MEDS ORDERED: PANTOPRAZOLE 40 MG TABLET PO ONE (01:15)
[2022-10-01] MEDS ORDERED: MELATONIN 5 MG TABLETS ONE (01:15)
[2022-10-01] MEDS: PANTOPRAZOLE 40 MG TABLET PO SCH ×2 (01:16→10:18)
[2022-10-01] MEDS ORDERED: DOCUSATE SODIUM 100 MG CAPSULE (FP) PO ONE (01:16)
[2022-10-01] MEDS: POLYETHYLENE GLYCOL (HEALTHYLAX) 3350 17 GM PACKET PO SCH ×2 (01:16→10:18)
[2022-10-01] MEDS: FLUTICASONE PROP 0.05% 16 GM NASAL SPRAY NS SCH ×2 (01:35→10:18)
[2022-10-01 05:10] VITALS: RESP 18
[2022-10-01] MEDS ORDERED: CALCIUM CARBONATE 650 MG TABLET PO SCH (10:00)
[2022-10-01] MEDS ORDERED: CHOLECALCIFEROL (VIT D3) 1,000 UNIT (25 MCG) TABLET PO SCH (10:00)
[2022-10-01] MEDS ORDERED: ENOXAPARIN NA (PORCINE) 40 MG/0.4 ML DISP.SYRIN SQ SCH (10:00)
[2022-10-01] MEDS ORDERED: MULTIVITAMINS THER W-MINERALS COMBO TABLET (FP) PO SCH (10:00)
[2022-10-01] MEDS ORDERED: FLUDROCORTISONE ACETATE 0.1 MG TABLET (FP) PO SCH (10:00)
[2022-10-01] MEDS: CARBIDOPA/LEVODOPA 25/250 TABLET (FP) PO SCH ×3 (10:19→17:58)
[2022-10-01 18:49] VITALS: BP 106/64; PULSE 75; TEMP 98.3
[2022-10-01] MEDS ORDERED: SENNOSIDES 8.6MG TABLET (FP) PO SCH (22:00)
== END 2022-10-01 18:55 | disposition home or self-care (01) | DRG 312 ==
LOC: JER 17:04 → JERBED 22:38 → OBSVTOIN 22:51 → JERBED 22:51 → J4S 10-01 02:42
PROVIDERS: ADMIT Internal Medicine; ATTEND Internal Medicine
DX: I95.1 Orthostatic hypotension (principal); I10 Essential (primary) hypertension; G20 Parkinson's disease; G25.81 Restless legs syndrome; I45.10 Unspecified right bundle-branch block; I25.10 Atherosclerotic heart disease of native coronary artery without angina pectoris; K21.9 Gastro-esophageal reflux disease without esophagitis; F41.9 Anxiety disorder, unspecified; M62.81 Muscle weakness (generalized); R79.89 Other specified abnormal findings of blood chemistry; E86.0 Dehydration
CPT/HCPCS: 36415; 71045-TC-FY; 80053; 81003; 84484; 85025; 86850; 86900; 86901; 87086; 93005; 93010; 97116-GP; 97161-GP; 99285-25; C9803-CS; G0378; U0003; U0005

== ENCOUNTER 2023-03-21 19:42 | Inpatient (IN) | payer OTHER ==
[2023-03-21 19:50] VITALS: BMI 20.9
[2023-03-21] MEDS ORDERED: ACETAMINOPHEN 325 MG TABLET (FP) PO ONE (20:35)
[2023-03-21] MEDS ORDERED: guaiFENesin 600 MG TABLET.ER (FP) PO ONE (20:36)
[2023-03-21] MEDS ORDERED: ACETAMINOPHEN 325 MG TABLET (FP) ONE (20:41)
[2023-03-21] MEDS ORDERED: CARBIDOPA/LEVODOPA 25/100 TABLET (FP) PO ONE (21:37)
[2023-03-21] MEDS ORDERED: CARBIDOPA/LEVODOPA 25/100 TABLET (FP) ONE (21:37)
[2023-03-21] MEDS: CARBIDOPA/LEVODOPA 25/250 TABLET (FP) PO ONE ×2 (21:42→21:43)
[2023-03-21 22:31] LABS: BASO % 0.2 % (0-2.0); EOS % 0.9 % (0-4.5); HEMATOCRIT 39.6 % (32.4-45.2); HEMOGLOBIN 13.4 GM/dL (10.7-15.3); LYMPH % 9.7 % (8-40); MCH 30.5 pg (25.7-33.7); MCHC 33.9 g/dl (32.0-36.0); MEAN CELL VOLUME 90.1 fl (80-96); MEAN PLT VOLUME 7.6 fl (7.5-11.1); MONO % 5.6 % (3.8-10.2); NEUT % 83.6 % (42.8-82.8); PLATELET COUNT 247 10^3/uL (134-434); RDW 13.9 % (11.6-15.6); WHITE BLOOD COUNT 12.8 K/mm3 (4.0-10.0)
[2023-03-21 22:38] LABS: PROTHROMBIN TIME (PATIENT) 11.6 SEC (9.7-13.0)
[2023-03-21 22:53] LABS: POTASSIUM 3.5 mmol/L (3.5-5.1)
[2023-03-21 22:55] LABS: CALCIUM 8.8 mg/dL (8.5-10.1)
[2023-03-21 22:56] LABS: ALBUMIN 3.5 g/dl (3.4-5.0); BLOOD UREA NITROGEN 22.9 mg/dL (7-18)
[2023-03-21 23:00] LABS: BILIRUBIN,TOTAL 0.4 mg/dL (0.2-1)
[2023-03-21 23:01] LABS: TOT PROT 6.8 g/dl (6.4-8.2)
[2023-03-22] MEDS ORDERED: KETOROLAC TROMETHAMINE 30 MG/1 ML VIAL IM PRN (01:19)
[2023-03-22 04:41] LABS: EPI CELLS 5 /uL (0-25.1); HYALINE CASTS 0 /uL (0-3.1); PH,URINE 7.5 (5.0-8.0); URINE APPEARANCE CLEAR; URINE BACTERIA 35 /uL (0-1359); URINE BILIRUBIN NEGATIVE (NEGATIVE); URINE COLOR YELLOW; URINE GLUCOSE (UA) NEGATIVE (NEGATIVE); URINE KETONE NEGATIVE (NEGATIVE); URINE LEUK ESTERASE TRACE (NEGATIVE); URINE NITRITE NEGATIVE (NEGATIVE); URINE PROTEIN NEGATIVE (NEGATIVE); URINE RBC 7 /uL (0-23.9); URINE UROBILINOGEN 0.2 mg/dL (0.2-1.0); URINE WBC 3 /uL (0-25.8)
[2023-03-22] MEDS ORDERED: CARBIDOPA/LEVODOPA 25/100 TABLET (FP) ONE (05:31)
[2023-03-22] MEDS ORDERED: ACETAMINOPHEN INJECTION 100 ML IVPB ONE (06:11)
[2023-03-22] MEDS ORDERED: KETOROLAC TROMETHAMINE 30 MG/1 ML VIAL ONE (06:11)
[2023-03-22] MEDS: ACETAMINOPHEN 1000 MG/100 ML BAG IVPB PRN ×3 (06:20→21:59)
[2023-03-22 06:21] LABS: MAGNESIUM 2.3 mg/dL (1.8-2.4)
[2023-03-22 09:17] LABS: BASO % 0.5 % (0-2.0); EOS % 2.4 % (0-4.5); HEMATOCRIT 35.3 % (32.4-45.2); HEMOGLOBIN 12.5 GM/dL (10.7-15.3); LYMPH % 12.7 % (8-40); MCH 31.6 pg (25.7-33.7); MCHC 35.5 g/dl (32.0-36.0); MEAN PLT VOLUME 8.1 fl (7.5-11.1); MONO % 6.5 % (3.8-10.2); NEUT % 77.9 % (42.8-82.8); PLATELET COUNT 219 10^3/uL (134-434); RBC 3.97 M/mm3 (3.60-5.2); RDW 14.1 % (11.6-15.6); WHITE BLOOD COUNT 9.3 K/mm3 (4.0-10.0)
[2023-03-22] MEDS: PANTOPRAZOLE 20 MG TABLET PO SCH ×2 (09:40→13:35)
[2023-03-22] MEDS: CALCIUM 500MG/VIT-D 200 UNITS COMBO TABLET (FP) PO SCH ×2 (09:40→13:34)
[2023-03-22] MEDS: POLYETHYLENE GLYCOL (HEALTHYLAX) 3350 17 GM PACKET PO SCH ×3 (09:40→21:59)
[2023-03-22] MEDS: CHOLECALCIFEROL (VIT D3) 1,000 UNIT (25 MCG) TABLET PO SCH ×2 (09:40→13:35)
[2023-03-22 09:41] LABS: POTASSIUM 3.7 mmol/L (3.5-5.1)
[2023-03-22] MEDS: LACTATED RINGERS SOLUTION 1,000 ML/1,000 ML INFUS.BAG IV SCH ×2 (09:41→13:31)
[2023-03-22] MEDS: LIDOCAINE 5% TOPICAL PATCH TP SCH (09:41)
[2023-03-22 09:43] LABS: CALCIUM 8.2 mg/dL (8.5-10.1)
[2023-03-22 09:44] LABS: ALBUMIN 3.2 g/dl (3.4-5.0); BLOOD UREA NITROGEN 17.9 mg/dL (7-18); MAGNESIUM 2.2 mg/dL (1.8-2.4)
[2023-03-22 09:47] LABS: CREATININE 0.8 mg/dL (0.55-1.3); PHOSPHOROUS 3.3 mg/dL (2.5-4.9)
[2023-03-22 09:49] LABS: BILIRUBIN,TOTAL 0.6 mg/dL (0.2-1); TOT PROT 6.1 g/dl (6.4-8.2)
[2023-03-22] MEDS: FLUDROCORTISONE ACETATE 0.1 MG TABLET (FP) PO SCH (18:56)
[2023-03-22] MEDS: FLUTICASONE PROP 0.05% 16 GM NASAL SPRAY NS SCH ×2 (18:57→22:08)
[2023-03-22] MEDS ORDERED: LORATADINE 10 MG TABLET PO SCH (22:00)
[2023-03-22] MEDS ORDERED: LIDOCAINE PATCH REMOVAL MC SCH (22:00)
[2023-03-22] MEDS ORDERED: PRAMIPEXOLE DIHYDROCHLORIDE 0.5 MG TABLET PO SCH (22:00)
[2023-03-23] MEDS: LACTATED RINGERS SOLUTION 1,000 ML/1,000 ML INFUS.BAG IV SCH (01:50)
[2023-03-23] MEDS: CALCIUM 500MG/VIT-D 200 UNITS COMBO TABLET (FP) PO SCH (09:31)
[2023-03-23] MEDS: CHOLECALCIFEROL (VIT D3) 1,000 UNIT (25 MCG) TABLET PO SCH (09:31)
[2023-03-23] MEDS: PANTOPRAZOLE 20 MG TABLET PO SCH (09:31)
[2023-03-23] MEDS: POLYETHYLENE GLYCOL (HEALTHYLAX) 3350 17 GM PACKET PO SCH ×2 (09:39→21:23)
[2023-03-23] MEDS: FLUDROCORTISONE ACETATE 0.1 MG TABLET (FP) PO SCH (10:08)
[2023-03-23] MEDS: FLUTICASONE PROP 0.05% 16 GM NASAL SPRAY NS SCH ×2 (10:08→23:00)
[2023-03-23] MEDS: LIDOCAINE 5% TOPICAL PATCH TP SCH (10:08)
[2023-03-23] MEDS ORDERED: ONDANSETRON 4 MG/2 ML VIAL IVPUSH PRN ×2 (10:22→14:21)
[2023-03-23] MEDS ORDERED: oxyCODONE HCL 5 MG TABLET PO PRN (10:22)
[2023-03-23] MEDS ORDERED: VASOPRESSIN 20 UNITS/ML VIAL IV ONE (10:41)
[2023-03-23] MEDS ORDERED: ROPIVACAINE HCL 0.5% 30ML VIAL ONE (10:48)
[2023-03-23] MEDS ORDERED: PROPOFOL 40 ML ONE (11:44)
[2023-03-23] MEDS: DOCUSATE SODIUM 100 MG CAPSULE (FP) PO SCH ×2 (17:05→21:23)
[2023-03-23] MEDS ORDERED: CEFAZOLIN 1 GM/D5W 1 GM/50 ML BAG IVPB SCH (18:00)
[2023-03-23] MEDS: CEFAZOLIN 1 GM in DEXTROSE 5%-WATER - 50 ML IVPB SCH (18:40)
[2023-03-23] MEDS: oxyCODONE HCL 5 MG TABLET PO PRN (20:10)
[2023-03-23] MEDS: PRAMIPEXOLE DIHYDROCHLORIDE 0.5 MG TABLET PO SCH (21:22)
[2023-03-23] MEDS: LIDOCAINE PATCH REMOVAL MC SCH (21:24)
[2023-03-24] MEDS ORDERED: ceFAZolin SODIUM 1 GM VIAL ONE (01:41)
[2023-03-24 01:47] VITALS: RESP 18
[2023-03-24] MEDS: CEFAZOLIN 1 GM in DEXTROSE 5%-WATER - 50 ML IVPB SCH ×3 (01:51→18:16)
[2023-03-24] MEDS: DOCUSATE SODIUM 100 MG CAPSULE (FP) PO SCH ×3 (06:17→21:48)
[2023-03-24] MEDS: LACTATED RINGERS SOLUTION 1,000 ML/1,000 ML INFUS.BAG IV SCH (07:44)
[2023-03-24] MEDS: LIDOCAINE 5% TOPICAL PATCH TP SCH (09:13)
[2023-03-24 09:17] LABS: BASO % 0.3 % (0-2.0); EOS % 1.4 % (0-4.5); HEMATOCRIT 32.7 % (32.4-45.2); HEMOGLOBIN 11.6 GM/dL (10.7-15.3); LYMPH % 7.8 % (8-40); MCH 31.4 pg (25.7-33.7); MCHC 35.4 g/dl (32.0-36.0); MEAN CELL VOLUME 88.8 fl (80-96); MONO % 7.8 % (3.8-10.2); NEUT % 82.7 % (42.8-82.8); PLATELET COUNT 182 10^3/uL (134-434); RBC 3.68 M/mm3 (3.60-5.2); RDW 13.6 % (11.6-15.6); WHITE BLOOD COUNT 9.3 K/mm3 (4.0-10.0)
[2023-03-24] MEDS: POLYETHYLENE GLYCOL (HEALTHYLAX) 3350 17 GM PACKET PO SCH ×2 (09:17→21:48)
[2023-03-24] MEDS: ENOXAPARIN NA (PORCINE) 40 MG/0.4 ML DISP.SYRIN SQ SCH (09:17)
[2023-03-24] MEDS: KETOROLAC TROMETHAMINE 30 MG/1 ML VIAL IM PRN ×2 (09:18→14:42)
[2023-03-24] MEDS: FLUTICASONE PROP 0.05% 16 GM NASAL SPRAY NS SCH ×2 (09:25→21:48)
[2023-03-24] MEDS: CHOLECALCIFEROL (VIT D3) 1,000 UNIT (25 MCG) TABLET PO SCH (09:25)
[2023-03-24] MEDS: PANTOPRAZOLE 20 MG TABLET PO SCH (09:25)
[2023-03-24] MEDS: CALCIUM 500MG/VIT-D 200 UNITS COMBO TABLET (FP) PO SCH (09:26)
[2023-03-24] MEDS: FLUDROCORTISONE ACETATE 0.1 MG TABLET (FP) PO SCH (09:27)
[2023-03-24 09:40] LABS: POTASSIUM 3.3 mmol/L (3.5-5.1)
[2023-03-24 09:49] LABS: ALBUMIN 2.8 g/dl (3.4-5.0); BILIRUBIN,TOTAL 0.6 mg/dL (0.2-1); BLOOD UREA NITROGEN 16.1 mg/dL (7-18); CALCIUM 8.1 mg/dL (8.5-10.1); CREATININE 0.7 mg/dL (0.55-1.3); TOT PROT 5.6 g/dl (6.4-8.2)
[2023-03-24] MEDS ORDERED: POTASSIUM CHLORIDE TABS 20 MEQ TABLET.ER (FP) PO ONE (14:12)
[2023-03-24] MEDS: PRAMIPEXOLE DIHYDROCHLORIDE 0.5 MG TABLET PO SCH (21:48)
[2023-03-24] MEDS: LIDOCAINE PATCH REMOVAL MC SCH (21:49)
[2023-03-24] MEDS: oxyCODONE HCL 5 MG TABLET PO PRN (22:39)
[2023-03-25] MEDS: DOCUSATE SODIUM 100 MG CAPSULE (FP) PO SCH ×2 (05:46→13:06)
[2023-03-25] MEDS: PANTOPRAZOLE 20 MG TABLET PO SCH (10:49)
[2023-03-25] MEDS: CHOLECALCIFEROL (VIT D3) 1,000 UNIT (25 MCG) TABLET PO SCH (10:49)
[2023-03-25] MEDS: LIDOCAINE 5% TOPICAL PATCH TP SCH (10:49)
[2023-03-25] MEDS: CALCIUM 500MG/VIT-D 200 UNITS COMBO TABLET (FP) PO SCH (10:49)
[2023-03-25] MEDS: POLYETHYLENE GLYCOL (HEALTHYLAX) 3350 17 GM PACKET PO SCH (10:49)
[2023-03-25] MEDS: ENOXAPARIN NA (PORCINE) 40 MG/0.4 ML DISP.SYRIN SQ SCH (10:51)
[2023-03-25] MEDS: FLUDROCORTISONE ACETATE 0.1 MG TABLET (FP) PO SCH (10:51)
[2023-03-25] MEDS ORDERED: MAGNESIUM HYDROX 2400MG/30ML ORAL SUSPENSION 30 ML CUP PO PRN (10:53)
[2023-03-25 11:03] LABS: BASO % 0.3 % (0-2.0); EOS % 2.1 % (0-4.5); HEMOGLOBIN 11.1 GM/dL (10.7-15.3); LYMPH % 9.8 % (8-40); MCH 30.8 pg (25.7-33.7); MCHC 33.5 g/dl (32.0-36.0); MEAN CELL VOLUME 91.7 fl (80-96); MEAN PLT VOLUME 9.1 fl (7.5-11.1); NEUT % 80.8 % (42.8-82.8); PLATELET COUNT 199 10^3/uL (134-434); RDW 13.9 % (11.6-15.6); WHITE BLOOD COUNT 7.8 K/mm3 (4.0-10.0)
[2023-03-25 11:24] LABS: POTASSIUM 3.8 mmol/L (3.5-5.1)
[2023-03-25 11:49] LABS: ALBUMIN 2.6 g/dl (3.4-5.0); CALCIUM 8.4 mg/dL (8.5-10.1)
[2023-03-25 11:50] LABS: BLOOD UREA NITROGEN 17.6 mg/dL (7-18)
[2023-03-25 11:52] LABS: CREATININE 0.8 mg/dL (0.55-1.3)
[2023-03-25 11:54] LABS: TOT PROT 5.6 g/dl (6.4-8.2)
[2023-03-25 11:56] LABS: BILIRUBIN,TOTAL 0.4 mg/dL (0.2-1)
[2023-03-25] MEDS: FLUTICASONE PROP 0.05% 16 GM NASAL SPRAY NS SCH (13:12)
[2023-03-25 15:10] VITALS: BP 130/71; PULSE 91; TEMP 98.6
== END 2023-03-25 17:51 | DRG 522 ==
LOC: JER 19:42 → JERBED 23:32 → J6S 03-22 06:49
PROVIDERS: ADMIT Internal Medicine; ATTEND Internal Medicine
PROC: 0SRR0J9 Replacement of Right Hip Joint, Femoral Surface with Synthetic Substitute, Cemented, Open Approach (ICD-10-PCS; principal; 2023-03-23 12:11)
DX: S72.001A Fracture of unspecified part of neck of right femur, initial encounter for closed fracture (principal); K56.609 Unspecified intestinal obstruction, unspecified as to partial versus complete obstruction; I10 Essential (primary) hypertension; J44.9 Chronic obstructive pulmonary disease, unspecified; G20 Parkinson's disease; I25.10 Atherosclerotic heart disease of native coronary artery without angina pectoris; K21.9 Gastro-esophageal reflux disease without esophagitis; E78.5 Hyperlipidemia, unspecified; K59.00 Constipation, unspecified; D72.829 Elevated white blood cell count, unspecified; W19.XXXA Unspecified fall, initial encounter; Y93.9 Activity, unspecified; Y92.89 Other specified places as the place of occurrence of the external cause; Y99.9 Unspecified external cause status
CPT/HCPCS: 36415; 70450-TC; 70486-TC; 71045-TC-FY; 72125-TC; 72170-TC-FY; 73070-TC-RT-FY; 73502-TC-RT-FY; 74018-TC-FY; 80048; 80053; 81003; 83735; 84100; 85025; 85610; 86850; 86900; 86901; 87086; 87635; 88305-TC; 88311-TC; 93005; 93010; 94760; 97116-GP; 97162-GP; 99285-25; C1776; C1889

== ENCOUNTER 2023-06-20 15:03 | Emergency (ER) | payer OTHER ==
[2023-06-20 15:31] VITALS: RESP 18; TEMP 98.2; BMI 19.3
[2023-06-20 16:11] LABS: BASO % 0.4 % (0-2.0); EOS % 1.4 % (0-4.5); HEMATOCRIT 35.9 % (32.4-45.2); HEMOGLOBIN 11.6 GM/dL (10.7-15.3); LYMPH % 10.3 % (8-40); MCHC 32.3 g/dl (32.0-36.0); MEAN CELL VOLUME 89.8 fl (80-96); MEAN PLT VOLUME 8.3 fl (7.5-11.1); MONO % 5.8 % (3.8-10.2); NEUT % 82.1 % (42.8-82.8); PLATELET COUNT 234 10^3/uL (134-434); RBC 3.99 M/mm3 (3.60-5.2); RDW 14.6 % (11.6-15.6); WHITE BLOOD COUNT 7.9 K/mm3 (4.0-10.0)
[2023-06-20 16:19] LABS: INR 1.02 (0.83-1.09); PROTHROMBIN TIME (PATIENT) 11.8 SEC (9.7-13.0)
[2023-06-20 16:22] LABS: ACTIVATED PTT 26.4 SECONDS (25.2-36.5)
[2023-06-20 16:38] LABS: POTASSIUM 3.3 mmol/L (3.5-5.1)
[2023-06-20 16:40] LABS: ALBUMIN 3.5 g/dl (3.4-5.0); BLOOD UREA NITROGEN 23.2 mg/dL (7-18); MAGNESIUM 2.2 mg/dL (1.8-2.4)
[2023-06-20 16:42] LABS: CREATININE 1.1 mg/dL (0.55-1.3)
[2023-06-20 16:44] LABS: BILIRUBIN,TOTAL 0.4 mg/dL (0.2-1); TOT PROT 6.6 g/dl (6.4-8.2)
[2023-06-20 21:10] LABS: EPI CELLS 10 /uL (0-25.1); HYALINE CASTS 0 /uL (0-3.1); PH,URINE 6.5 (5.0-8.0); URINE APPEARANCE CLEAR; URINE BACTERIA 80 /uL (0-1359); URINE BILIRUBIN NEGATIVE (NEGATIVE); URINE COLOR YELLOW; URINE GLUCOSE (UA) NEGATIVE (NEGATIVE); URINE KETONE NEGATIVE (NEGATIVE); URINE LEUK ESTERASE TRACE (NEGATIVE); URINE NITRITE NEGATIVE (NEGATIVE); URINE PROTEIN NEGATIVE (NEGATIVE); URINE RBC 9 /uL (0-23.9); URINE UROBILINOGEN 0.2 mg/dL (0.2-1.0); URINE WBC 18 /uL (0-25.8)
[2023-06-21 01:07] VITALS: BP 131/75; PULSE 71
== END 2023-06-21 01:25 | disposition home or self-care (01) ==
LOC: JER 15:03
DX: R55 Syncope and collapse (principal); Z20.822 Contact with and (suspected) exposure to COVID-19
CPT/HCPCS: 0241U-QW; 36415; 70450-TC; 71045-TC-FY; 80053; 81003; 83735; 84484; 85025; 85610; 85730; 87086; 93005; 93010; 99285-25

== ENCOUNTER 2023-10-16 10:54 | Emergency (ER) | payer OTHER ==
[2023-10-16 11:18] VITALS: PULSE 74; RESP 18; TEMP 98.6; BMI 18.7
[2023-10-16 12:36] VITALS: BP 155/90
[2023-10-16] MEDS ORDERED: LIDOCAINE 4% PATCH TP ONE (12:38)
[2023-10-16] MEDS: LIDOCAINE 4% PATCH TP ONE (12:41)
[2023-10-16] MEDS ORDERED: LIDOCAINE PATCH REMOVAL MC SCH (22:00)
== END 2023-10-16 16:00 ==
LOC: JER 10:54
DX: M25.552 Pain in left hip (principal)
CPT/HCPCS: 72170-TC-FY; 73502-TC-LT-FY; 99284-25

== ENCOUNTER 2023-11-08 15:05 | Emergency (ER) | payer OTHER ==
[2023-11-08 15:27] VITALS: BMI 17.5
[2023-11-08] MEDS ORDERED: CARBIDOPA/LEVODOPA 25/100 TABLET (FP) ONE (19:53)
[2023-11-08 20:15] VITALS: BP 171/80; PULSE 78; RESP 16; TEMP 98.6
== END 2023-11-09 00:54 | disposition home or self-care (01) ==
LOC: JER 15:05
DX: S09.90XA Unspecified injury of head, initial encounter (principal); M25.552 Pain in left hip; R55 Syncope and collapse; W01.198A Fall on same level from slipping, tripping and stumbling with subsequent striking against other object, initial encounter
CPT/HCPCS: 70450-TC; 71045-TC-FY; 72125-TC; 72170-TC-FY; 82962; 99285-25

== ENCOUNTER 2024-02-09 17:01 | Inpatient (IN) | payer OTHER ==
[2024-02-09 17:45] VITALS: BMI 18.1
[2024-02-09 19:44] LABS: HEMOGLOBIN 12.1 GM/dL (10.7-15.3); WHITE BLOOD COUNT 6.4 K/mm3 (4.0-10.0)
[2024-02-09 19:45] LABS: BASO % 0.7 % (0-2.0); EOS % 2.4 % (0-4.5); HEMATOCRIT 36.2 % (32.4-45.2); MCH 31.2 pg (25.7-33.7); MCHC 33.6 g/dl (32.0-36.0); MEAN CELL VOLUME 92.9 fl (80-96); MEAN PLT VOLUME 7.6 fl (7.5-11.1); MONO % 8.5 % (3.8-10.2); NEUT % 63.4 % (42.8-82.8); PLATELET COUNT 215 10^3/uL (134-434); RDW 14.2 % (11.6-15.6)
[2024-02-09 19:47] LABS: URINE BILIRUBIN NEGATIVE (NEGATIVE); URINE COLOR YELLOW; URINE GLUCOSE (UA) NEGATIVE (NEGATIVE); URINE KETONE NEGATIVE (NEGATIVE); URINE LEUK ESTERASE NEGATIVE (NEGATIVE); URINE NITRITE NEGATIVE (NEGATIVE); URINE PROTEIN NEGATIVE (NEGATIVE); URINE UROBILINOGEN 0.2 mg/dL (0.2-1.0)
[2024-02-09 19:57] LABS: INR 0.94 (0.83-1.09); PROTHROMBIN TIME (PATIENT) 10.8 SEC (9.7-13.0)
[2024-02-09 19:59] LABS: ACTIVATED PTT 26.7 SECONDS (25.2-36.5)
[2024-02-09 20:11] LABS: CALCIUM 9.2 mg/dL (8.5-10.1)
[2024-02-09 20:13] LABS: ALBUMIN 3.6 g/dl (3.4-5.0); MAGNESIUM 2.4 mg/dL (1.8-2.4)
[2024-02-09 20:15] LABS: CREATININE 0.8 mg/dL (0.55-1.3); PHOSPHOROUS 3.1 mg/dL (2.5-4.9)
[2024-02-09 20:18] LABS: BILIRUBIN,TOTAL 0.5 mg/dL (0.2-1); TOT PROT 6.5 g/dl (6.4-8.2)
[2024-02-09] MEDS ORDERED: KETOROLAC TROMETHAMINE 15 MG/ML VIAL ONE (20:37)
[2024-02-09] MEDS: KETOROLAC TROMETHAMINE 15 MG/ML VIAL IVPUSH ONE (20:43)
[2024-02-10] MEDS ORDERED: SENNOSIDES 8.6MG TABLET (FP) PO PRN (02:17)
[2024-02-10] MEDS ORDERED: KETOROLAC TROMETHAMINE 15 MG/ML VIAL IVPUSH PRN (02:19)
[2024-02-10] MEDS: amLODIPine BESYLATE 5 MG TABLET (FP) PO SCH (02:24)
[2024-02-10] MEDS: KETOROLAC TROMETHAMINE 15 MG/ML VIAL IVPUSH ONE (02:24)
[2024-02-10] MEDS ORDERED: amLODIPine BESYLATE 5 MG TABLET (FP) ONE (03:28)
[2024-02-10] MEDS: POLYETHYLENE GLYCOL (HEALTHYLAX) 3350 17 GM PACKET PO SCH (05:39)
[2024-02-10 08:54] LABS: HEMATOCRIT 37.7 % (32.4-45.2); HEMOGLOBIN 12.6 GM/dL (10.7-15.3); MCH 31.3 pg (25.7-33.7); MCHC 33.5 g/dl (32.0-36.0); MEAN CELL VOLUME 93.4 fl (80-96); MEAN PLT VOLUME 7.8 fl (7.5-11.1); PLATELET COUNT 239 10^3/uL (134-434); RBC 4.03 M/mm3 (3.60-5.2); RDW 13.9 % (11.6-15.6); WHITE BLOOD COUNT 6.1 K/mm3 (4.0-10.0)
[2024-02-10 09:09] LABS: POTASSIUM 3.7 mmol/L (3.5-5.1)
[2024-02-10 09:12] LABS: CALCIUM 9.3 mg/dL (8.5-10.1)
[2024-02-10 09:15] LABS: BLOOD UREA NITROGEN 20.3 mg/dL (7-18)
[2024-02-10 09:17] LABS: ALBUMIN 3.7 g/dl (3.4-5.0); MAGNESIUM 2.4 mg/dL (1.8-2.4)
[2024-02-10 09:19] LABS: CREATININE 0.7 mg/dL (0.55-1.3); PHOSPHOROUS 3.5 mg/dL (2.5-4.9); TOT PROT 6.7 g/dl (6.4-8.2)
[2024-02-10 09:20] LABS: BILIRUBIN,TOTAL 0.8 mg/dL (0.2-1)
[2024-02-10] MEDS ORDERED: PATIENT'S OWN MEDICATION (NON-FORMULARY) (Linaclotide [Linzess] 290 MCG Capsule) PO SCH (10:00)
[2024-02-10] MEDS ORDERED: CHOLECALCIFEROL (VIT D3) 1,000 UNIT (25 MCG) TABLET PO SCH (10:00)
[2024-02-10] MEDS: ENOXAPARIN NA (PORCINE) 40 MG/0.4 ML DISP.SYRIN SQ SCH (10:34)
[2024-02-10] MEDS: PANTOPRAZOLE 20 MG TABLET PO SCH (10:35)
[2024-02-10] MEDS: CALCIUM 500MG/VIT-D 200 UNITS COMBO TABLET (FP) PO SCH (10:35)
[2024-02-10] MEDS: LIDOCAINE 4% PATCH TP SCH (10:35)
[2024-02-10] MEDS: CHOLECALCIFEROL (VIT D3) 1,000 UNIT (25 MCG) TABLET PO SCH (10:35)
[2024-02-10] MEDS: FLUTICASONE PROP 0.05% 16 GM NASAL SPRAY NS SCH (10:38)
[2024-02-10 13:16] VITALS: RESP 18
[2024-02-10] MEDS: ACETAMINOPHEN 325 MG TABLET (FP) PO PRN (13:53)
[2024-02-10] MEDS: SENNOSIDES 8.6MG TABLET (FP) PO SCH (21:58)
[2024-02-10] MEDS: PRAMIPEXOLE DIHYDROCHLORIDE 0.5 MG TABLET PO SCH (21:58)
[2024-02-10] MEDS: LIDOCAINE PATCH REMOVAL MC SCH (22:10)
[2024-02-11] MEDS: PRAMIPEXOLE DIHYDROCHLORIDE 0.25 MG TABLET PO SCH (05:09)
[2024-02-11] MEDS: KETOROLAC TROMETHAMINE 15 MG/ML VIAL IVPUSH PRN (06:49)
[2024-02-11 09:56] LABS: URINE APPEARANCE CLEAR
[2024-02-12 15:18] VITALS: BP 115/51; PULSE 84; TEMP 98.3
== END 2024-02-12 17:46 | DRG 560 ==
LOC: JER 17:01 → JERBED 19:23 → J5S 02-10 03:59
PROVIDERS: ADMIT Internal Medicine; ATTEND Student in an Organized Health Care Education/Training Program
DX: T84.84XA Pain due to internal orthopedic prosthetic devices, implants and grafts, initial encounter (principal); E44.0 Moderate protein-calorie malnutrition; R64 Cachexia; Z68.1 Body mass index [BMI] 19.9 or less, adult; G20.A1 Parkinson's disease without dyskinesia, without mention of fluctuations; I10 Essential (primary) hypertension; E78.5 Hyperlipidemia, unspecified; J44.9 Chronic obstructive pulmonary disease, unspecified; R62.7 Adult failure to thrive; K59.00 Constipation, unspecified; G25.81 Restless legs syndrome; K21.9 Gastro-esophageal reflux disease without esophagitis; Y83.9 Surgical procedure, unspecified as the cause of abnormal reaction of the patient, or of later complication, without mention of misadventure at the time of the procedure; Z96.649 Presence of unspecified artificial hip joint
CPT/HCPCS: 36415; 71045-TC-FY; 71250-TC; 73502-TC-RT-FY; 74176-TC; 80053; 81003; 82550; 82728; 83540; 83550; 83735; 84100; 84484; 85025; 85027; 85610; 85730; 86850; 86900; 86901; 87086; 93005; 93010; 97116-GP; 97161-GP; 99285-25

== ENCOUNTER 2024-06-16 12:18 | Inpatient (IN) | payer OTHER ==
[2024-06-16 13:46] LABS: BASO % 0.4 % (0-2.0); EOS % 0.9 % (0-4.5); HEMATOCRIT 35.5 % (32.4-45.2); HEMOGLOBIN 12.1 GM/dL (10.7-15.3); LYMPH % 8.4 % (8-40); MCH 31.5 pg (25.7-33.7); MCHC 34.1 g/dl (32.0-36.0); MEAN CELL VOLUME 92.3 fl (80-96); MONO % 7.8 % (3.8-10.2); NEUT % 82.5 % (42.8-82.8); PLATELET COUNT 182 10^3/uL (134-434); RBC 3.85 M/mm3 (3.60-5.2); WHITE BLOOD COUNT 8.3 K/mm3 (4.0-10.0)
[2024-06-16 13:56] LABS: INR 0.96 (0.83-1.09); PROTHROMBIN TIME (PATIENT) 10.9 SEC (9.7-13.0)
[2024-06-16 13:59] LABS: ACTIVATED PTT 28.1 SECONDS (25.2-36.5)
[2024-06-16 14:07] LABS: POTASSIUM 3.7 mmol/L (3.5-5.1)
[2024-06-16 14:09] LABS: BLOOD UREA NITROGEN 21.6 mg/dL (7-18); CALCIUM 8.7 mg/dL (8.5-10.1)
[2024-06-16 14:10] LABS: ALBUMIN 3.4 g/dl (3.4-5.0)
[2024-06-16 14:13] LABS: CREATININE 0.8 mg/dL (0.55-1.3)
[2024-06-16 14:14] LABS: BILIRUBIN,TOTAL 0.5 mg/dL (0.2-1); TOT PROT 6.3 g/dl (6.4-8.2)
[2024-06-16] MEDS ORDERED: ACETAMINOPHEN INJECTION 100 ML ONE (14:18)
[2024-06-16] MEDS ORDERED: CARBIDOPA/LEVODOPA 25/100 TABLET (FP) ONE (14:19)
[2024-06-16] MEDS: ACETAMINOPHEN 1000 MG/100 ML BAG IVPB ONE (14:34)
[2024-06-16] MEDS ORDERED: ACETAMINOPHEN 325 MG TABLET (FP) ONE (15:20)
[2024-06-16] MEDS: ACETAMINOPHEN 500 MG TABLET (FP) PO ONE (15:28)
[2024-06-16] MEDS ORDERED: ENOXAPARIN NA (PORCINE) 40 MG/0.4 ML DISP.SYRIN SQ ONE (20:54)
[2024-06-16] MEDS ORDERED: PANTOPRAZOLE 40 MG TABLET PO ONE (20:54)
[2024-06-16] MEDS: PANTOPRAZOLE 40 MG TABLET PO SCH (21:22)
[2024-06-16] MEDS: ENOXAPARIN NA (PORCINE) 40 MG/0.4 ML DISP.SYRIN SQ SCH (21:22)
[2024-06-16] MEDS ORDERED: POLYETHYLENE GLYCOL (HEALTHYLAX) 3350 17 GM PACKET ONE (22:31)
[2024-06-16] MEDS: FLUTICASONE PROP 0.05% 16 GM NASAL SPRAY NS SCH (22:45)
[2024-06-16] MEDS: PRAMIPEXOLE DIHYDROCHLORIDE 0.5 MG TABLET PO SCH (22:46)
[2024-06-16] MEDS: POLYETHYLENE GLYCOL (HEALTHYLAX) 3350 17 GM PACKET PO SCH (22:46)
[2024-06-17 04:03] VITALS: BMI 18.8
[2024-06-17] MEDS: ACETAMINOPHEN 325 MG TABLET (FP) PO PRN (06:47)
[2024-06-17] MEDS ORDERED: CHOLECALCIFEROL (VIT D3) 5000 UNITS (125 MCG) CAP PO SCH (10:00)
[2024-06-17] MEDS ORDERED: POLYETHYLENE GLYCOL (HEALTHYLAX) 3350 17 GM PACKET PO SCH (10:00)
[2024-06-17] MEDS: traMADol HCL 50 MG TABLET PO PRN (15:24)
[2024-06-18 22:55] VITALS: RESP 18
[2024-06-19] MEDS: ONDANSETRON *ODT* 4 MG TABLET SL ONE (13:05)
[2024-06-19] MEDS ORDERED: ONDANSETRON *ODT* 4 MG TABLET SL PRN (14:42)
[2024-06-21 13:24] VITALS: BP 115/56; PULSE 83; TEMP 98.2
== END 2024-06-21 11:49 | DRG 535 ==
LOC: JER 12:18 → JERBED 20:03 → J8W 23:38
PROVIDERS: ADMIT Internal Medicine; ATTEND Internal Medicine
DX: S32.512A Fracture of superior rim of left pubis, initial encounter for closed fracture (principal); E43 Unspecified severe protein-calorie malnutrition; Z68.1 Body mass index [BMI] 19.9 or less, adult; J44.9 Chronic obstructive pulmonary disease, unspecified; I10 Essential (primary) hypertension; K21.9 Gastro-esophageal reflux disease without esophagitis; F41.9 Anxiety disorder, unspecified; I25.10 Atherosclerotic heart disease of native coronary artery without angina pectoris; G20.A1 Parkinson's disease without dyskinesia, without mention of fluctuations; W19.XXXA Unspecified fall, initial encounter; Y93.89 Activity, other specified; Y92.89 Other specified places as the place of occurrence of the external cause; Y99.8 Other external cause status
CPT/HCPCS: 36415; 70450-TC; 71045-TC-FY; 72125-TC; 72170-TC-FY; 72192-TC; 73502-TC-LT-FY; 80053; 85025; 85610; 85730; 86850; 86900; 86901; 93005; 93010; 97116-GP; 99285-25; Q0162

== ENCOUNTER 2024-12-29 09:03 | Inpatient (IN) | payer OTHER ==
[2024-12-29] MEDS ORDERED: ACETAMINOPHEN INJECTION 100 ML ONE (09:55)
[2024-12-29] MEDS: ACETAMINOPHEN 1000 MG/100 ML BAG IVPB ONE (10:27)
[2024-12-29 10:34] LABS: ABSOLUTE IMMATURE GRANULOCYTES 0.06 x10^3/uL (0.0-0.031); BASOPHILS # 0.03 x10^3/uL (0.01-0.08); EOSINOPHIL % 1.3 % (0.7-5.8); EOSINOPHILS # 0.11 x10^3/uL (0.04-0.36); HEMOGLOBIN 12.3 g/dL (11.2-15.7); MCHC 32.4 g/dl (32.2-35.5); MEAN CELL VOLUME 94.3 fl (79.4-94.8); MEAN PLT VOLUME 9.7 fl (9.4-12.3); MONOCYTE # 0.52 x10^3/uL (0.24-0.86); MONOCYTE % 5.9 % (4.7-12.5); PLATELET COUNT 195 x10^3/uL (182-369); RDW 13.2 % (12.4-16.6)
[2024-12-29 10:37] LABS: EPI CELLS 11 /uL (0-25.1); HYALINE CASTS 0 /uL (0-3.1); PH,URINE 7.5 (5.0-8.0); URINE APPEARANCE TURBID; URINE BACTERIA 37 /uL (0-1359); URINE BILIRUBIN NEGATIVE (NEGATIVE); URINE COLOR YELLOW; URINE GLUCOSE (UA) NEGATIVE (NEGATIVE); URINE KETONE NEGATIVE (NEGATIVE); URINE LEUK ESTERASE TRACE (NEGATIVE); URINE NITRITE NEGATIVE (NEGATIVE); URINE PROTEIN NEGATIVE (NEGATIVE); URINE RBC 8 /uL (0-23.9); URINE UROBILINOGEN 0.2 mg/dL (0.2-1.0); URINE WBC 8 /uL (0-25.8)
[2024-12-29 10:53] LABS: POTASSIUM 3.7 mmol/L (3.5-5.1)
[2024-12-29 10:55] LABS: ALBUMIN 3.5 g/dl (3.4-5.0); CALCIUM 9.1 mg/dL (8.5-10.1)
[2024-12-29 10:56] LABS: BLOOD UREA NITROGEN 23.3 mg/dL (7-18)
[2024-12-29 10:59] LABS: CREATININE 0.7 mg/dL (0.55-1.3)
[2024-12-29 11:01] LABS: BILIRUBIN,TOTAL 0.6 mg/dL (0.2-1); TOT PROT 6.4 g/dl (6.4-8.2)
[2024-12-29] MEDS: LORazepam 2 MG/ML SDV VIAL IVPUSH ONE (12:32)
[2024-12-29] MEDS ORDERED: MORPHINE SULFATE 2 MG/ML SYRINGE ONE (17:37)
[2024-12-29] MEDS: morphine CARPU-JECT 2 MG/1 ML DISP.SYRIN IVPUSH ONE (17:40)
[2024-12-29] MEDS ORDERED: ACETAMINOPHEN 325 MG TABLET (FP) PO PRN (17:59)
[2024-12-29] MEDS ORDERED: hydrALAZINE HCL 20 MG/ML VIAL IVPUSH PRN (18:08)
[2024-12-29] MEDS: PANTOPRAZOLE 40 MG TABLET PO SCH (20:50)
[2024-12-29] MEDS: PRAMIPEXOLE DIHYDROCHLORIDE 0.25 MG TABLET PO SCH (20:50)
[2024-12-29] MEDS: SERTRALINE HCL 50 MG TABLET (FP) PO SCH (20:50)
[2024-12-30] MEDS: POLYETHYLENE GLYCOL (HEALTHYLAX) 3350 17 GM PACKET PO SCH (09:24)
[2024-12-30 09:49] LABS: HEMATOCRIT 38.2 % (34.1-44.9); HEMOGLOBIN 12.3 g/dL (11.2-15.7); MCHC 32.2 g/dl (32.2-35.5); MEAN CELL VOLUME 93.4 fl (79.4-94.8); MEAN PLT VOLUME 9.8 fl (9.4-12.3); PLATELET COUNT 179 x10^3/uL (182-369); RDW 13.4 % (12.4-16.6)
[2024-12-30] MEDS ORDERED: PATIENT'S OWN MEDICATION (NON-FORMULARY) (Linaclotide [Linzess] 290 MCG Capsule) PO SCH (10:00)
[2024-12-30 10:12] LABS: POTASSIUM 4.1 mmol/L (3.5-5.1)
[2024-12-30 10:29] LABS: BLOOD UREA NITROGEN 26.8 mg/dL (7-18); CALCIUM 9.1 mg/dL (8.5-10.1); MAGNESIUM 2.1 mg/dL (1.8-2.4)
[2024-12-30 10:32] LABS: CREATININE 0.8 mg/dL (0.55-1.3)
[2024-12-30] MEDS: ACETAMINOPHEN 1000 MG/100 ML BAG IVPB SCH (13:55)
[2024-12-30] MEDS: ACETAMINOPHEN 500 MG TABLET (FP) PO SCH (14:41)
[2024-12-30] MEDS: oxyCODONE HCL 5 MG TABLET PO ONE (15:44)
[2024-12-30] MEDS: PRAMIPEXOLE DIHYDROCHLORIDE 0.25 MG TABLET PO SCH (22:11)
[2024-12-30 22:47] VITALS: BMI 19.0
[2024-12-31 07:45] LABS: HEMATOCRIT 35.3 % (34.1-44.9); HEMOGLOBIN 11.5 g/dL (11.2-15.7); MCHC 32.6 g/dl (32.2-35.5); MEAN CELL VOLUME 91.9 fl (79.4-94.8); PLATELET COUNT 147 x10^3/uL (182-369); RDW 13.5 % (12.4-16.6)
[2024-12-31 08:09] LABS: POTASSIUM 3.1 mmol/L (3.5-5.1)
[2024-12-31 08:22] LABS: CALCIUM 8.6 mg/dL (8.5-10.1)
[2024-12-31 08:23] LABS: BLOOD UREA NITROGEN 25.3 mg/dL (7-18)
[2024-12-31 08:26] LABS: CREATININE 0.6 mg/dL (0.55-1.3)
[2024-12-31 08:27] LABS: BILIRUBIN,TOTAL 1.4 mg/dL (0.2-1); TOT PROT 5.5 g/dl (6.4-8.2)
[2024-12-31] MEDS: POTASSIUM CHLORIDE ORAL LIQUID 20 MEQ/15 ML PO ONE ×2 (12:51→16:33)
[2024-12-31] MEDS ORDERED: POTASSIUM CHLORIDE ORAL LIQUID 20 MEQ/15 ML PO ONE (14:00)
[2024-12-31] MEDS: ACETAMINOPHEN 500 MG TABLET (FP) PO SCH (21:18)
[2025-01-01 08:36] VITALS: RESP 18
[2025-01-01 08:52] LABS: HEMATOCRIT 36.1 % (34.1-44.9); HEMOGLOBIN 11.7 g/dL (11.2-15.7); MCHC 32.4 g/dl (32.2-35.5); MEAN PLT VOLUME 10.2 fl (9.4-12.3); PLATELET COUNT 178 x10^3/uL (182-369); RDW 13.7 % (12.4-16.6)
[2025-01-01 09:03] LABS: POTASSIUM 4.1 mmol/L (3.5-5.1)
[2025-01-01 09:06] LABS: BLOOD UREA NITROGEN 28.6 mg/dL (7-18)
[2025-01-01 09:09] LABS: BILIRUBIN,DIRECT 0.2 mg/dL (0.0-0.2); CREATININE 0.8 mg/dL (0.55-1.3)
[2025-01-01 09:11] LABS: BILIRUBIN,TOTAL 0.8 mg/dL (0.2-1); TOT PROT 5.9 g/dl (6.4-8.2)
[2025-01-01] MEDS: POTASSIUM CHLORIDE ORAL LIQUID 20 MEQ/15 ML PO ONE (09:24)
[2025-01-01] MEDS: hydrALAZINE HCL 10 MG TABLET PO SCH ×2 (11:12→21:24)
[2025-01-01] MEDS: LIDOCAINE 5% TOPICAL PATCH TP SCH (11:14)
[2025-01-01] MEDS: LIDOCAINE PATCH REMOVAL MC SCH (21:25)
[2025-01-02] MEDS: hydrALAZINE HCL 10 MG TABLET PO ONE (07:58)
[2025-01-02 08:22] LABS: ABSOLUTE IMMATURE GRANULOCYTES 0.03 x10^3/uL (0.0-0.031); BASOPHILS # 0.02 x10^3/uL (0.01-0.08); EOSINOPHIL % 3.3 % (0.7-5.8); EOSINOPHILS # 0.24 x10^3/uL (0.04-0.36); HEMATOCRIT 35.5 % (34.1-44.9); HEMOGLOBIN 11.5 g/dL (11.2-15.7); MCHC 32.4 g/dl (32.2-35.5); MEAN CELL VOLUME 92.4 fl (79.4-94.8); MEAN PLT VOLUME 10.2 fl (9.4-12.3); MONOCYTE # 0.65 x10^3/uL (0.24-0.86); MONOCYTE % 8.8 % (4.7-12.5); PLATELET COUNT 194 x10^3/uL (182-369); RDW 13.7 % (12.4-16.6)
[2025-01-02 08:44] LABS: POTASSIUM 3.8 mmol/L (3.5-5.1)
[2025-01-02 08:46] LABS: CALCIUM 9.1 mg/dL (8.5-10.1)
[2025-01-02 08:47] LABS: BLOOD UREA NITROGEN 20.9 mg/dL (7-18)
[2025-01-02 08:51] LABS: CREATININE 0.5 mg/dL (0.55-1.3)
[2025-01-02] MEDS: hydrALAZINE HCL 10 MG TABLET PO SCH (13:57)
[2025-01-02] MEDS: ACETAMINOPHEN 500 MG TABLET (FP) PO PRN (14:18)
[2025-01-03 05:54] VITALS: PULSE 72
[2025-01-03 09:30] VITALS: BP 126/68; TEMP 98.1
[2025-01-03] MEDS: hydrALAZINE HCL 10 MG TABLET PO SCH (11:29)
== END 2025-01-03 15:56 | DRG 536 ==
LOC: JER 09:03 → INTOOBSV 16:10 → UNDOADMOB 16:10 → JERBED 16:10 → J6S 18:03 → JERBED 18:03 → OBSVTOIN 12-30 10:30
PROVIDERS: ADMIT Internal Medicine; ATTEND Internal Medicine
DX: S32.591A Other specified fracture of right pubis, initial encounter for closed fracture (principal); G20.A1 Parkinson's disease without dyskinesia, without mention of fluctuations; E78.5 Hyperlipidemia, unspecified; I25.10 Atherosclerotic heart disease of native coronary artery without angina pectoris; J44.9 Chronic obstructive pulmonary disease, unspecified; F41.8 Other specified anxiety disorders; D50.9 Iron deficiency anemia, unspecified; K21.9 Gastro-esophageal reflux disease without esophagitis; R91.1 Solitary pulmonary nodule; E87.6 Hypokalemia; M48.061 Spinal stenosis, lumbar region without neurogenic claudication; N94.89 Other specified conditions associated with female genital organs and menstrual cycle; I10 Essential (primary) hypertension; W18.30XA Fall on same level, unspecified, initial encounter; Y93.9 Activity, unspecified; Y92.128 Other place in nursing home as the place of occurrence of the external cause; Y99.9 Unspecified external cause status; Z96.641 Presence of right artificial hip joint
CPT/HCPCS: 36415; 70450-TC; 71045-TC-FY; 71250-TC; 72125-TC; 72170-TC-FY; 72192-TC; 80048; 80053; 81003; 82248; 83735; 84100; 84484; 85025; 85027; 87086; 87635; 93005; 93010; 97116-GP; 97162-GP; 99285-25; G0378; J0131

== ENCOUNTER 2025-05-20 03:09 | Inpatient (IN) | payer OTHER ==
[2025-05-20 03:45] LABS: URINE APPEARANCE CLEAR; URINE BILIRUBIN NEGATIVE (NEGATIVE); URINE COLOR YELLOW; URINE GLUCOSE (UA) NEGATIVE (NEGATIVE); URINE KETONE NEGATIVE (NEGATIVE); URINE LEUK ESTERASE NEGATIVE (NEGATIVE); URINE NITRITE NEGATIVE (NEGATIVE); URINE PROTEIN TRACE (NEGATIVE); URINE UROBILINOGEN 1.0 mg/dL (0.2-1.0)
[2025-05-20 05:01] LABS: ABSOLUTE IMMATURE GRANULOCYTES 0.03 x10^3/uL (0.0-0.031); BASOPHILS # 0.03 x10^3/uL (0.01-0.08); EOSINOPHIL % 1.0 % (0.7-5.8); EOSINOPHILS # 0.08 x10^3/uL (0.04-0.36); MCHC 32.0 g/dl (32.2-35.5); MEAN CELL VOLUME 93.3 fl (79.4-94.8); MEAN PLT VOLUME 10.0 fl (9.4-12.3); MONOCYTE # 0.87 x10^3/uL (0.24-0.86); MONOCYTE % 11.0 % (4.7-12.5); RDW 13.5 % (12.4-16.6)
[2025-05-20 05:09] LABS: INR 1.04 (0.83-1.09); PROTHROMBIN TIME (PATIENT) 11.3 SEC (9.7-13.0)
[2025-05-20 05:12] LABS: ACTIVATED PTT 26.9 SECONDS (25.2-36.5)
[2025-05-20 05:22] LABS: GLUCOSE,RANDOM 98.0 mg/dL (74-106); TOT PROT 6.5 g/dl (6.4-8.2)
[2025-05-20 05:23] LABS: CO2 24.0 mmol/L (21-32)
[2025-05-20 05:25] LABS: ALK PHOS 88.0 U/L (40-150)
[2025-05-20 05:27] LABS: SGOT/AST 20.0 U/L (5-34); SGPT/ALT 11.0 U/L (0-55)
[2025-05-20 05:28] LABS: CREATININE 0.62 mg/dL (0.55-1.3)
[2025-05-20] MEDS ORDERED: morphine CARPU-JECT 4 MG/1 ML DISP.SYRIN IVPUSH ONE (06:10)
[2025-05-20] MEDS ORDERED: MORPHINE SULFATE 2 MG/ML SYRINGE ONE (06:17)
[2025-05-20] MEDS ORDERED: ACETAMINOPHEN 325 MG TABLET (FP) PO PRN (06:19)
[2025-05-20] MEDS: morphine CARPU-JECT 2 MG/1 ML DISP.SYRIN IVPUSH ONE (06:22)
[2025-05-20] MEDS: HEPARIN NA (PORCINE) 5,000 UNITS/ML 1ML VIAL SQ SCH (06:22)
[2025-05-20] MEDS ORDERED: POLYETHYLENE GLYCOL (HEALTHYLAX) 3350 17 GM PACKET ONE (06:24)
[2025-05-20] MEDS: POLYETHYLENE GLYCOL (HEALTHYLAX) 3350 17 GM PACKET PO SCH (06:25)
[2025-05-20] MEDS ORDERED: PANTOPRAZOLE 40 MG TABLET PO ONE (06:25)
[2025-05-20] MEDS: PANTOPRAZOLE 40 MG TABLET PO SCH (06:25)
[2025-05-20] MEDS: PRAMIPEXOLE DIHYDROCHLORIDE 0.25 MG TABLET PO SCH (09:39)
[2025-05-20] MEDS: SERTRALINE HCL 50 MG TABLET (FP) PO SCH (09:39)
[2025-05-20 12:30] VITALS: BMI 18.2
[2025-05-20] MEDS: SENNOSIDES 8.6MG TABLET (FP) PO SCH (21:05)
[2025-05-20] MEDS: ROSUVASTATIN CA 5 MG TABLET PO SCH (21:06)
[2025-05-21] MEDS ORDERED: ETOMIDATE 20 MG/10 ML VIAL IVPUSH ONE (08:36)
[2025-05-21] MEDS ORDERED: SUCCINYLCHOLINE CHLORIDE 200 MG/10 ML SYRINGE ONE (08:36)
[2025-05-21] MEDS ORDERED: PROPOFOL 20 ML ONE ×2 (08:36→10:07)
[2025-05-21 08:49] LABS: ABSOLUTE IMMATURE GRANULOCYTES 0.03 x10^3/uL (0.0-0.031); BASOPHILS # 0.03 x10^3/uL (0.01-0.08); EOSINOPHIL % 3.2 % (0.7-5.8); EOSINOPHILS # 0.21 x10^3/uL (0.04-0.36); MCHC 32.4 g/dl (32.2-35.5); MEAN CELL VOLUME 91.5 fl (79.4-94.8); MEAN PLT VOLUME 9.4 fl (9.4-12.3); MONOCYTE # 0.63 x10^3/uL (0.24-0.86); MONOCYTE % 9.7 % (4.7-12.5); RDW 13.2 % (12.4-16.6)
[2025-05-21] MEDS: ceFAZolin 2 GRAM PREMIX BAG IVPB ONE ×2 (09:07)
[2025-05-21] MEDS ORDERED: ACETAMINOPHEN INJECTION 100 ML ONE (10:34)
[2025-05-21] MEDS: LACTATED RINGERS SOLUTION 1,000 ML IV SCH ×2 (10:35→10:42)
[2025-05-21] MEDS: ACETAMINOPHEN 1000 MG/100 ML BAG IVPB ONE (10:35)
[2025-05-21] MEDS ORDERED: HEPARIN NA (PORCINE) 5,000 UNITS/ML 1ML VIAL SQ SCH (14:00)
[2025-05-21] MEDS: POLYETHYLENE GLYCOL (HEALTHYLAX) 3350 17 GM PACKET PO SCH (15:22)
[2025-05-21] MEDS: morphine CARPU-JECT 2 MG/1 ML DISP.SYRIN IVPUSH PRN (15:26)
[2025-05-21] MEDS: CEFAZOLIN SODIUM 2 GM in DEXTROSE 5%-WATER - 50 ML IVPB SCH (17:06)
[2025-05-21] MEDS ORDERED: CEFAZOLIN SODIUM 2 GM in DEXTROSE 5%-WATER 100 ML IVPB SCH (18:00)
[2025-05-21] MEDS: ROSUVASTATIN CA 5 MG TABLET PO SCH (21:02)
[2025-05-21] MEDS: SENNOSIDES 8.6MG TABLET (FP) PO SCH (21:03)
[2025-05-22] MEDS: PANTOPRAZOLE 40 MG TABLET PO SCH (06:01)
[2025-05-22 09:32] LABS: ABSOLUTE IMMATURE GRANULOCYTES 0.03 x10^3/uL (0.0-0.031); BASOPHILS # 0.03 x10^3/uL (0.01-0.08); EOSINOPHIL % 2.8 % (0.7-5.8); EOSINOPHILS # 0.21 x10^3/uL (0.04-0.36); MCHC 31.5 g/dl (32.2-35.5); MEAN CELL VOLUME 92.4 fl (79.4-94.8); MEAN PLT VOLUME 9.2 fl (9.4-12.3); MONOCYTE # 0.65 x10^3/uL (0.24-0.86); MONOCYTE % 8.6 % (4.7-12.5); RDW 13.2 % (12.4-16.6)
[2025-05-22 09:54] LABS: GLUCOSE,RANDOM 99.0 mg/dL (74-106)
[2025-05-22 09:56] LABS: CO2 25.0 mmol/L (21-32)
[2025-05-22 10:00] LABS: CREATININE 0.5 mg/dL (0.55-1.3)
[2025-05-22] MEDS ORDERED: ENOXAPARIN NA (PORCINE) 30 MG/0.3 ML DISP.SYRIN SQ SCH (10:00)
[2025-05-22] MEDS: SERTRALINE HCL 50 MG TABLET (FP) PO SCH (10:39)
[2025-05-22] MEDS: PRAMIPEXOLE DIHYDROCHLORIDE 0.25 MG TABLET PO SCH (10:39)
[2025-05-22] MEDS: ENOXAPARIN NA (PORCINE) 30 MG/0.3 ML DISP.SYRIN SQ SCH (10:43)
[2025-05-22 15:36] VITALS: RESP 18
[2025-05-23 09:51] LABS: ABSOLUTE IMMATURE GRANULOCYTES 0.03 x10^3/uL (0.0-0.031); BASOPHILS # 0.02 x10^3/uL (0.01-0.08); EOSINOPHIL % 1.7 % (0.7-5.8); EOSINOPHILS # 0.12 x10^3/uL (0.04-0.36); MCHC 31.3 g/dl (32.2-35.5); MEAN CELL VOLUME 93.0 fl (79.4-94.8); MEAN PLT VOLUME 9.3 fl (9.4-12.3); MONOCYTE # 0.34 x10^3/uL (0.24-0.86); MONOCYTE % 4.7 % (4.7-12.5); RDW 13.2 % (12.4-16.6)
[2025-05-23 10:10] LABS: GLUCOSE,RANDOM 185.0 mg/dL (74-106)
[2025-05-23 10:12] LABS: CO2 23.0 mmol/L (21-32)
[2025-05-23 10:16] LABS: CREATININE 0.53 mg/dL (0.55-1.3)
[2025-05-23] MEDS: POTASSIUM CHLORIDE ORAL LIQUID 20 MEQ/15 ML PO ONE ×2 (12:17→18:27)
[2025-05-23] MEDS: ACETAMINOPHEN 325 MG TABLET (FP) PO PRN (15:37)
[2025-05-24 09:35] LABS: ABSOLUTE IMMATURE GRANULOCYTES 0.03 x10^3/uL (0.0-0.031); BASOPHILS # 0.03 x10^3/uL (0.01-0.08); EOSINOPHIL % 2.2 % (0.7-5.8); EOSINOPHILS # 0.16 x10^3/uL (0.04-0.36); MCHC 32.1 g/dl (32.2-35.5); MEAN CELL VOLUME 91.2 fl (79.4-94.8); MEAN PLT VOLUME 9.1 fl (9.4-12.3); MONOCYTE # 0.50 x10^3/uL (0.24-0.86); MONOCYTE % 6.9 % (4.7-12.5); RDW 13.2 % (12.4-16.6)
[2025-05-24 09:54] LABS: GLUCOSE,RANDOM 116.0 mg/dL (74-106)
[2025-05-24 09:56] LABS: CO2 23.0 mmol/L (21-32)
[2025-05-24 10:00] LABS: CREATININE 0.58 mg/dL (0.55-1.3)
[2025-05-24 10:36] VITALS: BP 114/56; PULSE 72; TEMP 97.9
== END 2025-05-24 11:21 | DRG 481 ==
LOC: JER 03:09 → JERBED 05:26 → J5S 08:21
PROVIDERS: ADMIT Internal Medicine; ATTEND Internal Medicine
PROC: 0QS704Z Reposition Left Upper Femur with Internal Fixation Device, Open Approach (ICD-10-PCS; principal; 2025-05-21 08:00)
DX: S72.002A Fracture of unspecified part of neck of left femur, initial encounter for closed fracture (principal); E44.0 Moderate protein-calorie malnutrition; Z68.1 Body mass index [BMI] 19.9 or less, adult; J44.9 Chronic obstructive pulmonary disease, unspecified; I10 Essential (primary) hypertension; G20.A1 Parkinson's disease without dyskinesia, without mention of fluctuations; F02.80 Dementia in other diseases classified elsewhere, unspecified severity, without behavioral disturbance, psychotic disturbance, mood disturbance, and anxiety; E78.5 Hyperlipidemia, unspecified; I25.10 Atherosclerotic heart disease of native coronary artery without angina pectoris; W19.XXXA Unspecified fall, initial encounter; Y93.89 Activity, other specified; Y92.89 Other specified places as the place of occurrence of the external cause; Y99.8 Other external cause status
CPT/HCPCS: 36415; 70450-TC; 71045-TC-FY; 72125-TC; 72170-TC-FY; 72192-TC; 73502-TC-LT-FY; 74018-TC-FY; 76000-TC-FY; 80048; 80053; 81003; 83605; 83735; 85025; 85610; 85730; 86850; 86900; 86901; 87086; 87635; 93005; 93010; 94760; 97116-GP; 97161-GP; 99285-25; C1713